=== PATIENT | female | born 1985 | race Caucasian/White ===

== ENCOUNTER → 2022-05-09 13:14 | Outpatient (BNVA) | payer MEDICARE, SELFPAY | PROVIDERS: Family Provider Family Medicine; Visit Provider Family Medicine | DX: J02.0 Streptococcal pharyngitis (principal); B37.0 Candidal stomatitis | CPT/HCPCS: 87880 ==

== ENCOUNTER 2024-06-10 08:54 | Inpatient (IN) | payer MEDICARE, SELFPAY ==
[2024-06-10] VITALS (45 sets, daily range): BP systolic 83–127; BP diastolic 49–89; PULSE 84–142; RESP 15–34; TEMP 36.6–36.8; O2SAT 93–98; BMI 49.2
--- NOTE | 2024-06-10 08:56 | XRR_ITS ---
PROCEDURE INFORMATION: Exam: XR Chest Exam date and time: 06/10/2024 9:12 AM Age: 38 years old Clinical indication: Angina pectoris; Chest pain/sob TECHNIQUE: Imaging protocol: Radiologic exam of the chest. Views: 1 view. COMPARISON: No relevant prior studies available. FINDINGS: Lungs: Unremarkable. No consolidation. Pleural spaces: Unremarkable. No pleural effusion. No pneumothorax. Heart/Mediastinum: Unremarkable. No cardiomegaly. Bones/joints: Unremarkable. XR/XR chest 1V portable [id number] IMPRESSION: No acute cardiopulmonary findings.
--- NOTE | 2024-06-10 09:00 | ED_ITS ---
Documented by User: MINDY Cameron 06/10/24 12:46 HPI - Chest Pain 2 General: Chief Complaint: Chest Pain Stated Complaint: chest pain Time Seen by Provider: 06/10/24 08:56 Source: patient Mode of arrival: wheelchair Limitations: no limitations History of Present Illness: Patient is a 38-year-old female with a history of obesity, every day smoker, and physical deconditioning here for complaints of chest pain over the past few days. Patient was wheeled to her room in a wheelchair. Just the transferring from her wheelchair to her bed is producing profound dyspnea. She is essentially panting when I enter the room for initial examination. Patient tells me she rarely leaves her house and it is normal for her to get such shortness of breath with minimal activity. She smokes a pack of cigarettes a day. Patient states over the past few days she has been having chest pressure and tingling in her arms. She does state the other day it got worse after eating. She has no known medical conditions but admittedly does not leave her house to go to the doctor. Does state a few days ago she had a fever of 101.0. MD complaint: chest pain Onset (ago): day(s) Timing of current episode: episodic Onset: during rest Pain location: substernal Pain radiation: none Severity: moderate Quality: heaviness and other (pressure) Relieving factors: nothing Exacerbating factors: eating Associated symptoms: Reports no associated symptoms, dyspnea and fever(s) (a few days ago-none since); Deny abdominal pain, nausea, palpitations, syncope or vomiting Treatment prior to arrival: none Risk Factors: Coronary artery disease risk factors: smoking history Thoracic aortic dissection risk factors: none Related Data Home Medications Medication Instructions Recorded Confirmed No Known Home Medications 06/10/24 06/10/24 Allergies Allergy/AdvReac Type Severity Reaction Status Date / Time No Known Allergies Allergy Verified 08/05/22 12:05 Review of Systems 2 Const: Reports: fever(s) (a few days ago-none since); Denies: body aches, change in appetite or change in weight Eyes: Denies: change in vision, blurry vision, eye discharge, floaters or seeing flashes ENMT: Denies: throat pain, odynophagia, ear or mastoid pain, nasal discharge, nasal congestion or sinus pain Card: Reports: chest pain and dyspnea on exertion; Denies: palpitations, irregular heart rhythm, edema, syncope or pre-syncope Resp: Reports: dyspnea; Denies: wheezing, stridor, pain on inspiration or hemoptysis GI: Denies: abdominal pain, nausea, vomiting or diarrhea : Denies: flank pain or dysuria Musc: Denies: neck pain, back pain, extremity pain, extremity swelling, joint pain or joint swelling Skin/Breast: Denies: rash Neuro: Denies: headache(s), numbness in extremities, weakness in extremities, sensory changes or dizziness PFSH ED 2 PFSH: Social History (Updated 06/10/24 @ 12:37 by Lazaro Thompson MD) Smoking and tobacco/nicotine status: current every day tobacco/nicotine user Physical Exam 2 Const: COMMON NORMALS: no acute distress, patient oriented x3, no limitations, alert and well nourished GENERAL APPEARANCE: cooperative NUTRITIONAL APPEARANCE: obese morbidly obese ORIENTATION/CONSCIOUSNESS: Yes awake, Yes oriented to person, Yes oriented to place and Yes oriented to time HENMT: COMMON NORMALS: normocephalic and atraumatic HEAD & SCALP: normal to inspection, normocephalic and atraumatic Eye: COMMON NORMALS: no scleral icterus Neck/C-Spine: COMMON NORMALS: full ROM, no lymphadenopathy, supple and no meningeal signs Chest: COMMONS NORMALS: normal inspection of the chest Resp: COMMON NORMALS: normal respiratory effort and clear to auscultation bilaterally AUSCULTATION: clear to auscultation bilaterally Cardio: COMMON NORMALS: regular rhythm RATE: tachycardic RHYTHM: regular rhythm GI: COMMON NORMALS: Normal to inspection, nondistended, normoactive bowel sounds present, Soft to palpation, non-tender, No hepatosplenomegaly present and no masses PALPATION: Yes Soft to palpation and Yes No hepatosplenomegaly present : COMMON NORMALS: Yes no CVA tenderness BLADDER/KIDNEY EXAM: Yes no CVA tenderness Back/Pelvis: COMMON NORMALS: no CVA tenderness and thoracic and lumbar spine normal to inspection Extremity: COMMON NORMALS: normal to inspection, capillary refill normal, no clubbing, cyanosis or edema, no calf tenderness and no pedal edema NARRATIVE EXTREMITY EXAM: clubbed fingers GENERAL: Yes normal exam except as noted Neuro: LAYNE COMA SCALE: document GCS findings Layne coma scale eye opening: Spontaneous [place] coma scale verbal response: Orientated [place] coma scale motor response: Obey commands [place] coma scale total score: 15 COMMON NORMALS: patient oriented x3, CN's II-XII intact bilaterally, moves all extremities, no focal motor deficits, no sensory deficits noted and gait normal SENSORIUM/ORIENTATION: Yes alert, Yes oriented to person, Yes oriented to place and Yes oriented to time MENINGEAL SIGNS: Yes no meningeal signs Skin: COMMON NORMALS: no rashes or lesions noted NARRATIVE SKIN EXAM: psoriasis patches to lower extremities GENERAL SKIN EXAM: no rashes or lesions noted Course 2 Consultations: Consultation #1: Dr. Thompson-recommends admission to ICU, would appreciate consult with cardiology Consultation #2: Dr. Pelletier-will consult on patient; recommending 0.5 in nitro paste Vital Signs: Vital signs: Vital Signs Temperature 97.8 F 06/10/24 15:45 Pulse Rate 106 H 06/10/24 17:30 Respiratory Rate 21 H 06/10/24 17:30 Blood Pressure 126/75 06/10/24 17:30 Pulse Oximetry 94 06/10/24 17:30 Oxygen Delivery Me thod Room Air 06/10/24 16:00 MDM - Chest Pain Medical Decision Making Patient is a 38-year-old female here for intermittent episodes of chest pain/back pain over the past few days. Patient has no known medical problems however rarely leaves her house. She is a chronic heavy smoker. Patient was tachycardic upon arrival. CBC showed a white count of 21.4. She was initially started on IV fluids given concern for possible sepsis although source was not obvious. Later labs showed a baseline troponin of 790 and a significantly elevated BNP. IV fluids were eventually stopped due to concern for fluid overload/cardiomyopathy. CXR and UA did not reveal source of infection. CTA was ordered at the recommendation of Dr. Sarah. This was negative for PE. She does have moderate left ventricular enlargement. Patient will be admitted to Dr. Thompson. Dr. Pelletier will follow-he is planning for cath at some point. She has been started on IV heparin, Plavix, aspirin, nitro. Hospitalist requesting CT abdomen/pelvis to rule out possible infection source. Echo has been ordered. Medical Records I reviewed the patient's medical records. Lab Data I reviewed the patient's lab results. 06/10/24 09:23 06/10/24 09:23 Radiology Impressions Chest X-Ray 06/10/24 08:56 IMPRESSION: No acute cardiopulmonary findings. Chest CTA 06/10/24 09:59 IMPRESSION: 1. No pulmonary embolism. 2. Moderate LEFT ventricular enlargement. Progressed since 02/15/2006. 3. Mild pulmonary edema. 4. LEFT adrenal gland mass containing fat measures 5.2 x 5.0 cm and this is most likely an adrenal myelolipoma. 5. 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 Abdomen/Pelvis CT 06/10/24 12:10 IMPRESSION: 1. Status post appendectomy. 2. No renal obstruction. 3. Large LEFT ovarian cyst measures 6.0 x 7.5 x 5.5 cm. 4. LEFT adrenal gland mass contains fat. Most consistent with adrenal myelolipoma. 5. Small RIGHT adrenal gland adenoma. 6. No free fluid or free air. Laboratory Results WBC 21.40 10^3/uL (3.29-11.43) H 06/10/24 09:23 RBC 5.55 10^6/uL (3.85-5.65) 06/10/24 09:23 Hgb 14.80 g/dL (11.27-16.99) 06/10/24 09:23 Hct 45.1 % (36-47) 06/10/24 09:23 MCV 81.3 fl (85-98) L 06/10/24 09:23 MCH 26.7 pg (27-33) L 06/10/24 09:23 MCHC 32.8 g/dL (30-55) 06/10/24 09:23 RDW 15.1 % (12.1-15.1) 06/10/24 09:23 Plt Count 418 10^3/cmm (157-399) H 06/10/24 09:23 MPV 9.2 fL (7.4-10.4) 06/10/24 09:23 Neut % (Auto) 75.4 % 06/10/24 09:23 Lymph % (Auto) 17.8 % 06/10/24 09:23 [place] % (Auto) 5.3 % 06/10/24 09:23 Eos % (Auto) 0.5 % 06/10/24 09:23 Baso % (Auto) 0.4 % 06/10/24 09:23 Neut # (Auto) 16.14 10^3/uL (1.8-7.7) H 06/10/24 09: Lymph # (Auto) 3.8 10^3/uL (0.8-4.8) 06/10/24 09:23 [place] # (Auto) 1.1 10^3/uL (0.2-0.9) H 06/10/24 09: Eos # (Auto) 0.1 10^3/uL (0.0-0.8) 06/10/24 09: Baso # (Auto) 0.1 10^3/uL (0.0-0.1) 06/10/24 09: Nucleated RBC % (auto) 0 % 06/10/24 09: Nucleated RBCs # 0.0 /100WBC 06/10/24 09: D-Dimer 0.41 ug/mLFEU (0-0.59) 06/10/24 09:23 Sodium 132 mmol/L (136-145) L 06/10/24 09: Potassium 4.0 mmol/L (3.5-5.1) 06/10/24 09: Chloride 99 mmol/L (98-107) 06/10/24 09: Carbon Dioxide 15 mmol/L (22-29) L 06/10/24 09: Anion Gap 22.0 (5-19) H 06/10/24 09:23 BUN 7 mg/dL (6-20) 06/10/24 09: Creatinine 0.7 mg/dL (0.5-0.9) 06/10/24 09: GFR Calculation 92.7 mL/min (90-130) 06/10/24 09: Glucose 192 mg/dL (65-115) H 06/10/24 09: Estimat Average Glucose 157 06/10/24 09: Hemoglobin A1c 7.1 % (4.0-6.0) H 06/10/24 09:23 Calculated Osmolality 277 mOsm/kg (285-295) L 06/10/24 09: Lactic Acid 5.2 mmol/L (0.5-2.2) H* 06/10/24 09:23 Lactic Acid (Sepsis) 2.4 mmol/L (0.5-2.2) H 06/10/24 12:27 Calcium 9.0 mg/dL (8.5-10.5) 06/10/24 09:23 Total Bilirubin 0.6 mg/dL (0.15-1.2) 06/10/24 09:23 AST 69 U/L (0-32) H 06/10/24 09:23 ALT 16 U/L (0-33) 06/10/24 09:23 Alkaline Phosphatase 105 U/L (35-105) 06/10/24 09:23 Troponin T Baseline 790 ng/L (0-10) H* 06/10/24 09:23 Troponin T 120 Minute 783.0 ng/L (0-10) H 06/10/24 11:01 Delta Troponin T -7.0 ABS# (0-10) L 06/10/24 11:01 NT-Pro-B Natriuret Pep 9604 pg/mL (0-125) H 06/10/24 09:23 Total Protein 6.9 g/dL (6.6-8.7) 06/10/24 09:23 Albumin 3.8 g/dL (3.5-5.2) 06/10/24 09:23 Globulin 3.1 g/dL (1.3-4.6) 06/10/24 09:23 Triglycerides 197 mg/dL (0-150) H 06/10/24 09:23 Cholesterol 267 mg/dL (0-200) H 06/10/24 09:23 LDL Cholesterol, Calc 199 mg/dL (50-129) H 06/10/24 09:23 Total VLDL Cholesterol 39 mg/dL (0-30) H 06/10/24 09:23 HDL Cholesterol 29 mg/dL (60-100) L 06/10/24 09:23 Cholesterol/HDL Ratio 9.21 mg/dL (0.0-4.40) H 06/10/24 09:23 Procalcitonin 0.05 ng/mL (0-0.5) 06/10/24 09:23 HCG, Qual Negative (Negative) 06/10/24 09:23 Urine Color Yellow (Yellow) 06/10/24 11:10 Urine Appearance Clear (CLEAR) 06/10/24 11:10 Urine pH 5.5 (5-7) 06/10/24 11:10 Ur Specific [place] 1.051 (1.005-1.030) H 06/10/24 11:10 Urine Protein Trace (Negative) A 06/10/24 11:10 Urine Glucose (UA) Negative (Normal) 06/10/24 11:10 Urine Ketones Negative (Negative) 06/10/24 11:10 Urine Blood Non-haemolysed trace (Negative) 06/10/24 11:10 Urine Nitrate Negative (Negative) 06/10/24 11:10 Urine Bilirubin Negative (Negative) 06/10/24 11:10 Urine Urobilinogen 1.0 mg/dL (Negative) 06/10/24 11:10 Ur Leukocyte Esterase Negative (Negative) 06/10/24 11:10 Urine RBC 0-2 /hpf (0-2) 06/10/24 11:10 Urine WBC 0-5 /hpf (0-5) 06/10/24 11:10 Ur Squamous Epith Cells 0-5 /hpf (0-5) 06/10/24 11:10 Amorphous Sediment Not Reportable 06/10/24 11:10 Urine Bacteria Trace /hpf (NONE) 06/10/24 11:10 Hyaline Casts 8.26 /lpf 06/10/24 11:10 Urine Opiates Screen Positive ng/mL (Negative) H 06/10/24 11:10 Ur Barbiturates Screen Negative ng/mL (Negative) 06/10/24 11:10 Ur Phencyclidine Scrn Negative ng/mL (Negative) 06/10/24 11:10 Ur Amphetamines Screen Negative ng/mL (Negative) 06/10/24 11:10 U Benzodiazepines Scrn Negative ng/mL (Negative) 06/10/24 11:10 Urine Cocaine Screen Negative ng/mL (Negative) 06/10/24 11:10 U Marijuana (THC) Screen Negative ng/mL (Negative) 06/10/24 11:10 Coronavirus (PCR) Negative (Negative) 06/10/24 09:45 Influenza A (PCR) Negative (Negative) 06/10/24 09:45 Influenza Type B (PCR) Negative (Negative) 06/10/24 09:45 RSV (PCR) Negative (Negative) 06/10/24 09:45 All radiology interpretation(s) finalized by discharge Discharge Plan Discharge Patient Disposition: Admitted As Inpatient Admit Provider: Lazaro Thompson Clinical Impression: Dyspnea on exertion, Lactic acidosis, NSTEMI (non-ST elevated myocardial infarction) Condition: Stable Coding Level of Care Code ED Charge Operator for Johnathan Fwtana Documented by User: Sang Sarah DO 06/10/24 17:40 HPI - Chest Pain 2 General: Chief Complaint: Chest Pain Stated Complaint: chest pain Time Seen by Provider: 06/10/24 08:56 Related Data Home Medications Medication Instructions Recorded Confirmed No Known Home Medications 06/10/24 06/10/24 Allergies Allergy/AdvReac Type Severity Reaction Status Date / Time No Known Allergies Allergy Verified 08/05/22 12:05 [facility] ED 2 PFSH: Social History (Updated 06/10/24 @ 12:37 by Lazaro Thompson MD) Smoking and tobacco/nicotine status: current every day tobacco/nicotine user Physical Exam 2 Neuro: LAYNE COMA SCALE: document GCS findings [place] coma scale total score: 15 Course 2 Vital Signs: Vital signs: Vital Signs Temperature 97.8 F 06/10/24 15:45 Pulse Rate 106 H 06/10/24 17:30 Respiratory Rate 21 H 06/10/24 17:30 Blood Pressure 126/75 06/10/24 17:30 Pulse Oximetry 94 06/10/24 17:30 Oxygen Delivery Me thod Room Air 06/10/24 16:00 MDM - Chest Pain Medical Decision Making Patient is a 38-year-old female here for intermittent episodes of chest pain/back pain over the past few days. Patient has no known medical problems however rarely leaves her house. She is a chronic heavy smoker. Patient was tachycardic upon arrival. CBC showed a white count of 21.4. She was initially started on IV fluids given concern for possible sepsis although source was not obvious. Later labs showed a baseline troponin of 790 and a significantly elevated BNP. IV fluids were eventually stopped due to concern for fluid overload/cardiomyopathy. CXR and UA did not reveal source of infection. CTA was ordered at the recommendation of Dr. Sarah. This was negative for PE. She does have moderate left ventricular enlargement. Patient will be admitted to Dr. Thompson. Dr. Pelletier will follow-he is planning for cath at some point. She has been started on IV heparin, Plavix, aspirin, nitro. Hospitalist requesting CT abdomen/pelvis to rule out possible infection source. Echo has been ordered. Chart reviewed and patient discussed with midlevel. Agree with assessment and plan. Lab Data 06/10/24 09:23 06/10/24 09:23 Radiology Impressions Chest X-Ray 06/10/24 08:56 IMPRESSION: No acute cardiopulmonary findings. Chest CTA 06/10/24 09:59 IMPRESSION: 1. No pulmonary embolism. 2. Moderate LEFT ventricular enlargement. Progressed since 02/15/2006. 3. Mild pulmonary edema. 4. LEFT adrenal gland mass containing fat measures 5.2 x 5.0 cm and this is most likely an adrenal myelolipoma. 5. 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 Abdomen/Pelvis CT 06/10/24 12:10 IMPRESSION: 1. Status post appendectomy. 2. No renal obstruction. 3. Large LEFT ovarian cyst measures 6.0 x 7.5 x 5.5 cm. 4. LEFT adrenal gland mass contains fat. Most consistent with adrenal myelolipoma. 5. Small RIGHT adrenal gland adenoma. 6. No free fluid or free air. Laboratory Results WBC 21.40 10^3/uL (3.29-11.43) H 06/10/24 09:23 RBC 5.55 10^6/uL (3.85-5.65) 06/10/24 09:23 Hgb 14.80 g/dL (11.27-16.99) 06/10/24 09:23 Hct 45.1 % (36-47) 06/10/24 09:23 MCV 81.3 fl (85-98) L 06/10/24 09:23 MCH 26.7 pg (27-33) L 06/10/24 09:23 MCHC 32.8 g/dL (30-55) 06/10/24 09:23 RDW 15.1 % (12.1-15.1) 06/10/24 09:23 Plt Count 418 10^3/cmm (157-399) H 06/10/24 09:23 MPV 9.2 fL (7.4-10.4) 06/10/24 09:23 Neut % (Auto) 75.4 % 06/10/24 09:23 Lymph % (Auto) 17.8 % 06/10/24 09:23 [place] % (Auto) 5.3 % 06/10/24 09:23 Eos % (Auto) 0.5 % 06/10/24 09:23 Baso % (Auto) 0.4 % 06/10/24 09:23 Neut # (Auto) 16.14 10^3/uL (1.8-7.7) H 06/10/24 09:23 Lymph # (Auto) 3.8 10^3/uL (0.8-4.8) 06/10/24 09:23 [place] # (Auto) 1.1 10^3/uL (0.2-0.9) H 06/10/24 09:23 Eos # (Auto) 0.1 10^3/uL (0.0-0.8) 06/10/24 09:23 Baso # (Auto) 0.1 10^3/uL (0.0-0.1) 06/10/24 09: Nucleated RBC % (auto) 0 % 06/10/24 09: Nucleated RBCs # 0.0 /100WBC 06/10/24 09:23 D-Dimer 0.41 ug/mLFEU (0-0.59) 06/10/24 09:23 Sodium 132 mmol/L (136-145) L 06/10/24 09:23 Potassium 4.0 mmol/L (3.5-5.1) 06/10/24 09:23 Chloride 99 mmol/L (98-107) 06/10/24 09:23 Carbon Dioxide 15 mmol/L (22-29) L 06/10/24 09:23 Anion Gap 22.0 (5-19) H 06/10/24 09:23 BUN 7 mg/dL (6-20) 06/10/24 09:23 Creatinine 0.7 mg/dL (0.5-0.9) 06/10/24 09:23 GFR Calculation 92.7 mL/min (90-130) 06/10/24 09:23 Glucose 192 mg/dL (65-115) H 06/10/24 09:23 Estimat Average Glucose 157 06/10/24 09:23 Hemoglobin A1c 7.1 % (4.0-6.0) H 06/10/24 09:23 Calculated Osmolality 277 mOsm/kg (285-295) L 06/10/24 09:23 Lactic Acid 5.2 mmol/L (0.5-2.2) H* 06/10/24 09:23 Lactic Acid (Sepsis) 2.4 mmol/L (0.5-2.2) H 06/10/24 12:27 Calcium 9.0 mg/dL (8.5-10.5) 06/10/24 09:23 Total Bilirubin 0.6 mg/dL (0.15-1.2) 06/10/24 09:23 AST 69 U/L (0-32) H 06/10/24 09:23 ALT 16 U/L (0-33) 06/10/24 09:23 Alkaline Phosphatase 105 U/L (35-105) 06/10/24 09:23 Troponin T Baseline 790 ng/L (0-10) H* 06/10/24 09:23 Troponin T 120 Minute 783.0 ng/L (0-10) H 06/10/24 11:01 Delta Troponin T -7.0 ABS# (0-10) L 06/10/24 11:01 NT-Pro-B Natriuret Pep 9604 pg/mL (0-125) H 06/10/24 09:23 Total Protein 6.9 g/dL (6.6-8.7) 06/10/24 09:23 Albumin 3.8 g/dL (3.5-5.2) 06/10/24 09:23 Globulin 3.1 g/dL (1.3-4.6) 06/10/24 09:23 Triglycerides 197 mg/dL (0-150) H 06/10/24 09:23 Cholesterol 267 mg/dL (0-200) H 06/10/24 09:23 LDL Cholesterol, Calc 199 mg/dL (50-129) H 06/10/24 09:23 Total VLDL Cholesterol 39 mg/dL (0-30) H 06/10/24 09:23 HDL Cholesterol 29 mg/dL (60-100) L 06/10/24 09:23 Cholesterol/HDL Ratio 9.21 mg/dL (0.0-4.40) H 06/10/24 09:23 Procalcitonin 0.05 ng/mL (0-0.5) 06/10/24 09:23 HCG, Qual Negative (Negative) 06/10/24 09:23 Urine Color Yellow (Yellow) 06/10/24 11:10 Urine Appearance Clear (CLEAR) 06/10/24 11:10 Urine pH 5.5 (5-7) 06/10/24 11:10 Ur Specific [place] 1.051 (1.005-1.030) H 06/10/24 11:10 Urine Protein Trace (Negative) A 06/10/24 11:10 Urine Glucose (UA) Negative (Normal) 06/10/24 11:10 Urine Ketones Negative (Negative) 06/10/24 11:10 Urine Blood Non-haemolysed trace (Negative) 06/10/24 11:10 Urine Nitrate Negative (Negative) 06/10/24 11:10 Urine Bilirubin Negative (Negative) 06/10/24 11:10 Urine Urobilinogen 1.0 mg/dL (Negative) 06/10/24 11:10 Ur Leukocyte Esterase Negative (Negative) 06/10/24 11:10 Urine RBC 0-2 /hpf (0-2) 06/10/24 11:10 Urine WBC 0-5 /hpf (0-5) 06/10/24 11:10 Ur Squamous Epith Cells 0-5 /hpf (0-5) 06/10/24 11:10 Amorphous Sediment Not Reportable 06/10/24 11:10 Urine Bacteria Trace /hpf (NONE) 06/10/24 11:10 Hyaline Casts 8.26 /lpf 06/10/24 11:10 Urine Opiates Screen Positive ng/mL (Negative) H 06/10/24 11:10 Ur Barbiturates Screen Negative ng/mL (Negative) 06/10/24 11:10 Ur Phencyclidine Scrn Negative ng/mL (Negative) 06/10/24 11:10 Ur Amphetamines Screen Negative ng/mL (Negative) 06/10/24 11:10 U Benzodiazepines Scrn Negative ng/mL (Negative) 06/10/24 11:10 Urine Cocaine Screen Negative ng/mL (Negative) 06/10/24 11:10 U Marijuana (THC) Screen Negative ng/mL (Negative) 06/10/24 11:10 Coronavirus (PCR) Negative (Negative) 06/10/24 09:45 Influenza A (PCR) Negative (Negative) 06/10/24 09:45 Influenza Type B (PCR) Negative (Negative) 06/10/24 09:45 RSV (PCR) Negative (Negative) 06/10/24 09:45 Discharge Plan Discharge Patient Disposition: Admitted As Inpatient Admit Provider: Lazaro Thompson Clinical Impression: Dyspnea on exertion, Lactic acidosis, NSTEMI (non-ST elevated myocardial infarction) Condition: Stable Coding Level of Care Code ED Charge Operator for Johnathan Greco
--- NOTE | 2024-06-10 09:07 | ECG_ITS ---
[facility]9 [facility] [place] [facility] Date: 2024-06-10 Pat Name: Eva Guzmán Department: Room: Gender: Female Coil Former: : 1985 Requested By: Lorena Gonzalez Order Number: [id number] Tory MD: Gil Anderson M.D. Measurements Intervals [place] Rate: 131 P: 84 KS: 151 QRS: 95 QRSD: 91 T: 89 QT: 386 QTc: 570 Interpretive Statements SINUS TACHYCARDIA WITH OCCASIONAL VENTRICULAR PREMATURE COMPLEXES BORDERLINE RIGHT AXIS DEVIATION [QRS AXIS > 90] LOW QRS VOLTAGE [QRS DEFLECTION < 0.5/1.0 mV IN LIMB/CHEST LEADS] POSSIBLE ANTERIOR MYOCARDIAL INFARCTION , OF INDETERMINATE AGE [30 ms Q WAVE IN V3/V4, OR R < 0.2 mV IN V4] No previous ECG available for comparison Electronically Signed On 06-13-2024 22:09:35 ORCHESTRA DIRECTOR by Gil Anderson M.D. [email or web address]
[2024-06-10 09:28] LABS: Basophils # 0.1 10^3/uL (0.0-0.1); Basophils % 0.4 %; Eosinophils # 0.1 10^3/uL (0.0-0.8); Eosinophils % 0.5 %; Hematocrit 45.1 % (36-47); Lymphocytes # 3.8 10^3/uL (0.8-4.8); Lymphocytes % 17.8 %; Mean Corpuscular HGB Conc 32.8 g/dL (30-55); Mean Corpuscular Hemoglobin 26.7 pg (27-33); Mean Corpuscular Volume 81.3 fl (85-98); Mean Platelet Volume 9.2 fL (7.4-10.4); Monocytes # 1.1 10^3/uL (0.2-0.9); Monocytes % 5.3 %; Neutrophils # 16.14 10^3/uL (1.8-7.7); Neutrophils % 75.4 %; Nucleated Red Blood Cells % 0 %; Platelet Count 418 10^3/cmm (157-399); Red Blood Count 5.55 10^6/uL (3.85-5.65); Red Cell Distribution Width 15.1 % (12.1-15.1)
[2024-06-10 09:48] LABS: D Dimer 0.41 ug/mLFEU (0-0.59); HCG, Serum Qual Negative (Negative)
[2024-06-10 09:52] LABS: Troponin(5th) Baseline 790 ng/L (0-10)
[2024-06-10 09:55] LABS: Alanine Aminotransferase 16 U/L (0-33); Albumin Level 3.8 g/dL (3.5-5.2); Alkaline Phosphatase 105 U/L (35-105); Aspartate Amino Transferase 69 U/L (0-32); Blood Urea Nitrogen 7 mg/dL (6-20); Carbon Dioxide 15 mmol/L (22-29); Chloride 99 mmol/L (98-107); Creatinine Clr Calc Pharmacy 138.0906; Globulin 3.1 g/dL (1.3-4.6); Glomerular Filtration Rate 92.7 mL/min (90-130); Glucose 192 mg/dL (65-115); Osmolality Calculated 277 mOsm/kg (285-295); Sodium 132 mmol/L (136-145); Total Bilirubin 0.6 mg/dL (0.15-1.2); Total Protein 6.9 g/dL (6.6-8.7)
[2024-06-10 09:57] LABS: Lactic Sepsis W/Reflex 5.2 mmol/L (0.5-2.2)
--- NOTE | 2024-06-10 09:59 | CT_ITS ---
WS: [id number] CT CHEST ANGIOGRAPHY WITH REFORMATS HISTORY: SOB, tachycardia, elevated trop TECHNIQUE: Contiguous axial images are obtained through the chest during arterial injection of intrav enous contrast. Images are reconstructed to evaluate the pulmonary arteries. MIP imaging also reviewe d. All CT scans at [facility] use at least one of these dose optimization techniques: automat ed exposure control; mA and/or kV adjustment per patient size (includes targeted exams where dose is matched to clinical indication); or iterative reconstruction. CONTRAST: Omnipaque 350; 100 mL IV. DLP: 566.80 mGy.cm COMPARISON: None available. Adequate opacification of the pulmonary arteries. No proximal emboli or filling defect. No filling de fect in the lobar or segmental branches. No RIGHT heart strain. There is significant enlargement of t he LEFT ventricle. Mild interstitial edema. Subpleural micronodule RIGHT upper lobe. No mediastinal adenopathy. Normal s ize pulmonary artery. Small hiatal hernia. There is a large fat-containing mass associated with the LEFT adrenal gland. There are fat components and solid components. The adrenal gland measures 5.2 x 5.0 cm. New since the study from 2005. There is an additional smaller RIGHT adrenal gland mass measuring 1.6 x 1.2 cm consistent with an adenoma. Liver is enlarged. CT/CT angio chest PE protcl [id number] IMPRESSION: 1. No pulmonary embolism. 2. Moderate LEFT ventricular enlargement. Progressed since 02/15/2006. 3. Mild pulmonary edema. 4. LEFT adrenal gland mass containing fat measures 5.2 x 5.0 cm and this is mo st likely an adrenal myelolipoma. 5. 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
[2024-06-10 10:03] LABS: Procalcitonin 0.05 ng/mL (0-0.5)
[2024-06-10] MEDS: iohexol 350 mg/mL 500 mL Btl (per mL) IV (10:19)
[2024-06-10] MEDS: aspirin 81 mg Chew Tablet 324 MG PO (10:26)
[2024-06-10] MEDS: heparin 5,000 unit/mL INJ 1 mL IVP ×2 (10:27→18:47)
[2024-06-10] MEDS: clopidogrel 300 mg Tablet PO (10:27)
[2024-06-10] MEDS: heparin drip 25,000 UNIT/500 ML PREMIX 35 UNIT IV (10:27)
[2024-06-10 10:36] LABS: NT Pro B Type Natriuretic Pept 9604 pg/mL (0-125)
[2024-06-10 10:53] LABS: Influenza A NEGATIVE (Negative); Influenza B NEGATIVE (Negative); Respiratory Syncytial Virus Ce NEGATIVE (Negative); SARS-CoV-2 PCR NEGATIVE (Negative)
--- NOTE | 2024-06-10 11:08 | USCV_ITS ---
Eva Guzmán Age: 38 Gender: F : 1985 Exam Date: 06/10/2024 14:15 Ordering Phys: Lorena Gonzalez Technologist: Exam Location: [facility] Indication: CHF BP: 83 / 54 HR: 99 Rhythm: Sinus Technical Quality: Adequate MEASUREMENTS (Male / Female) Normal Values 2D ECHO LV Diastolic Diameter PLAX 5.4 cm 4.2 - 5.9 / 3.9 - 5.3 cm IVS Diastolic Thickness 1.3 cm 0.6 - 1.0 / 0.6 - 0.9 cm IVS Systolic Thickness 1.6 cm LVPW Diastolic Thickness 1.3 cm 0.6 - 1.0 / 0.6 - 0.9 cm LVPW Systolic Thickness 1.4 cm LVOT Diameter 2.1 cm LV Ejection Fraction 2D Teich 31.6 % LV Ejection Fraction MOD 4C 33.8 % LV Ejection Fraction MOD 2C 36.7 % LV Ejection Fraction 2C AL 36.6 % LA Diameter 4.1 cm RA Systolic Volume 4C AL 36.3 ml RA Systolic Volume 4C MOD 35.7 ml LA Sys Volume AL 41.1 cm cubed LA Sys Volume Index AL 15.9 cm cubed/m squared Aorta at Sinotubular Diameter 2.7 cm IVC Diameter 1.3 cm M-MODE LA Ao Ratio MM 1.2 AV Cusp Separation MM 2.3 cm DOPPLER AV Peak Velocity 110.0 cm/s LVOT Peak Velocity 83.0 cm/s AV Area Cont Eq vti 3.4 cm squared AV Area Cont Eq pk 2.7 cm squared MV Peak Velocity 132.0 cm/s MV Area PHT 8.0 cm squared Mitral E to A Ratio 17.2 TV Peak Velocity 153.5 cm/s TR Peak Velocity 164.0 cm/s TR Peak Gradient 10.8 mmHg TV Peak E Velocity 101.0 cm/s PV Peak Velocity 120.0 cm/s FINDINGS Left Ventricle Moderately increased left ventricular cavity size. Severely decreased left ventricular systolic function. Left ventricular ejection fraction is estimated at 35% . There appeared to be anterior, mid to distal septal and apical.Grade II/IV diastolic dysfunction, moderately elevated filling pressures. Right Ventricle The right ventricle is normal in size and function. Right Atrium The right atrium is normal in size. Left Atrium The left atrium is normal in size. Mitral Valve Moderately thickened mitral valve. No mitral valve stenosis. Mild mitral valve regurgitation. Aortic Valve Moderate aortic valve calcification. No aortic valve stenosis. Trace aortic valve regurgitation. Tricuspid Valve Structurally normal tricuspid valve without significant stenosis or regurgitation. Pulmonary artery systolic pressure is normal. Pulmonic Valve Structurally normal pulmonic valve without significant stenosis. There is no pulmonic regurgitation. Pericardium Normal pericardium without effusion. Aorta Normal ascending aorta dimension. IVC The inferior vena cava appears normal. CONCLUSIONS Moderately increased left ventricular cavity size. Severely decreased left ventricular systolic function. Left ventricular ejection fraction is estimated at 35% . There appeared to be anterior, mid to distal septal and apical.Grade II/IV diastolic dysfunction, moderately elevated filling pressures. No significant valve abnormalities. There is no pericardial effusion. Right atrial pressure is around 15 mm of mercury. Stephon Larios MD (Electronically Signed) Final Date: 11 June 2024 20:55 S
--- NOTE | 2024-06-10 11:15 | ECG_ITS ---
[employer] Test Date: 2024-06-10 Pat Name: Eva Guzmán Department: Room: Gender: Female Rehabilitation Therapy Aide: : 1985 Requested By: Lorena Gonzalez Order Number: [id number] Spears MD: Gil Anderson M.D. Measurements Intervals [place] Rate: 118 P: 82 [place]: 165 QRS: 97 QRSD: 93 T: 81 QT: 432 QTc: 607 Interpretive Statements SINUS TACHYCARDIA POSSIBLE LEFT ATRIAL ENLARGEMENT [-0.1mV P-WAVE IN V1/V2] BORDERLINE RIGHT AXIS DEVIATION [QRS AXIS > 90] LOW QRS VOLTAGE [QRS DEFLECTION < 0.5/1.0 mV IN LIMB/CHEST LEADS] POSSIBLE ANTERIOR MYOCARDIAL INFARCTION , OF INDETERMINATE AGE [30 ms Q WAVE IN V3/V4, OR R < 0.2 mV IN V4] MODERATE T-WAVE ABNORMALITY, CONSIDER LATERAL ISCHEMIA [-0.1+ mV T-WAVE IN I/aVL/V5/V6] Compared to ECG 06/10/2024 09:07:31 T-wave abnormality now present Ventricular premature complex(es) no longer present Myocardial infarct finding still present Electronically Signed On 06-13-2024 22:24:10 [employer] by Gil Anderson M.D. [id number] [id number]
[2024-06-10 11:22] LABS: Reflex Lactate Order REFLEX LACTIC ORDERD
[2024-06-10 11:23] LABS: Bilirubin Urine Negative (Negative); Blood Urine Non-haemolysed trace (Negative); Glucose Urine UA Negative (Normal); Ketones Urine Negative (Negative); Leukocyte Esterase Urine Negative (Negative); Nitrate Urine Negative (Negative); Protein Urine Trace (Negative); Urine Appearance Clear (CLEAR); Urine Color Yellow (Yellow); pH Urine 5.5 (5-7)
[2024-06-10 11:26] LABS: Add Urine Microscopic? YES; Bacteria Urine Trace /hpf; Hyaline Casts Urine 8.26 /lpf; RBC Urine 0-2 /hpf (0-2); Squamous Epithelial Cell Urine 0-5 /hpf (0-5); WBC Urine 0-5 /hpf (0-5)
[2024-06-10 11:52] LABS: Amphetamines Screen Urine Negative (Negative); Barbiturates Screen Urine Negative (Negative); Benzodiazepines Screen Urine Negative (Negative); Cocaine Screen Urine Negative (Negative); Opiate Screen Urine Positive (Negative); PCP Screen Urine Negative (Negative); THC Screen Urine Negative (Negative)
[2024-06-10 11:58] LABS: Add Urine Culture? No; Specific Gravity, Urine 1.051 (1.005-1.030); UA Slide Review UA Slide Review Perf
--- NOTE | 2024-06-10 12:05 | P.HP_ITS ---
Providers/Chief Complaint 2 Chief Complaint: chest pain History of Present Illness Eva Guzmán is a 38 year old female Review of Systems 2 Const: Reports: malaise; Denies: fever(s), chills or body aches ENMT: Denies: throat pain or ear or mastoid pain Card: Denies: chest pain, edema, pre-syncope or dyspnea on exertion Resp: Denies: dyspnea, productive cough, change in phlegm color or hemoptysis GI: Denies: abdominal pain, nausea, vomiting, diarrhea, constipation, hematochezia or melena : Denies: flank pain, urinary frequency or hematuria Musc: Denies: back pain, joint swelling or joint redness Skin/Breast: Denies: rash or new lesions Neuro: Denies: headache(s) or confusion John/Lymph: Denies: easy bleeding Medications/Allergies Home Medications Medication Instructions Recorded Confirmed Last Taken Type No Known Home Medications 06/10/24 06/10/24 Unknown History Allergies Allergy/AdvReac Type Severity Reaction Status Date / Time No Known Allergies Allergy Verified 08/05/22 12:05 PFSH Acute 2 PFSH: Social History (Updated 06/10/24 @ 12:37 by Lazaro Thompson MD) Smoking and tobacco/nicotine status: current every day tobacco/nicotine user Vitals/I&O/Wt Last Vital Signs Temp 98.3 F 06/10/24 09:16 Pulse 121 H 06/10/24 11:16 Resp 20 H 06/10/24 09:16 BP 115/76 06/10/24 11:16 Pulse Ox 97 06/10/24 11:16 O2 Del Method Room Air 06/10/24 11:16 06/09/24 06/10/24 06/10/24 22:59 06:59 14:59 Intake Total 1072 / 1072 Balance 1072 / 1072 Weight last 48 hrs Weight 126.099 kg Physical Exam 2 Sepsis: Is patient septic: Yes Focused sepsis exam performed: Yes F ocused sepsis exam: She is awake and alert, conversant, cooperative. Without mottling or cyanosis. Date exam was performed: 06/10/24 Time exam was performed: 11:00 Data 06/10/24 09:23 06/10/24 09:23 Micro: Microbiology 06/10/24 11:01 Blood Culture - Preliminary Blood SPECIMEN COLLECTED 06/10/24 09:57 Blood Culture - Preliminary Blood SPECIMEN COLLECTED A&P Assessment and plan (1) Sepsis: Unclear source of severe sepsis with tissue hypoperfusion, lactic acid up to 5.2. With sinus tachycardia 113. With leukocytosis 21.4. Source unclear. Reviewed vitals, CBC, D-dimer, CMP, lactic acid, troponin, NT proBNP, procalcitonin, beta-hCG, UA, UDS, coronavirus, close, RSV PCR, chest x- ray, CTA chest, CT abdomen pelvis is requested. Reviewed ER provider note, discussed with ER provider. Sepsis with leukocytosis 21.4, sinus tachycardia 113. With severe sepsis with tissue hypoperfusion, 75.2. She has not had any respiratory symptoms, no suggestion of pneumonia on chest x-ray. No GI symptoms. No neurological symptoms. Does have psoriasis. Does report intermittent carbuncles of breast. Will obtain ultrasound imaging. Reviewed ER provider note, discussed with ER provider. Reviewed CT abdomen pelvis, status post appendectomy. Large left ovarian cyst, 6 x 7.5 x 5.5 cm, but appears not associated with any symptoms. Otherwise without acute process. Additionally possible component of cardiogenic shock with NSTEMI, pending further assessment of cardiac function, possibly new cardiomyopathy. Blood cultures have been collected, she has so far been empirically started on Zosyn. Will continue for now. Monitor for risk of agranulocytosis, Darby- Renny syndrome.C. difficile. Repeat blood counts. Follow-up culture. Has not received fluid resuscitation due to concern for cardiac problems including possible CHF/cardiomyopathy. (2) NSTEMI (non-ST elevated myocardial infarction): With severe elevation of troponin, O2 sat are 90, minimal downtrend to 783. NT proBNP significantly elevated at 9604. Hold off diuresis for now with severe sepsis. Was having chest pain pressure for which she had to take one of her daughters hydrocodone's. Smokes daily. Has psoriasis. Currently without diagnosed medical conditions apart from former, but also does not see a doctor. Continue anticoagulation with heparin drip, monitor for risk of bleeding, monitor PTT, reassess blood counts. Continue aspirin, Plavix, monitor for risk of arrhythmia. Obtain TTE. Cardiology assessment. Consideration of further workup/coronary angiography. Check lipid profile. With hyperglycemia noted on review, check A1c (3) Lactic acidosis: Significantly elevated lactic acid, 5.2, possibly secondary to severe sepsis as above. Treated as above. Additional cardiac workup with TTE. Monitor vitals, provide hemodynamic support as needed. Initial admission to ICU. (4) Dyspnea on exertion: Severe exertional intolerance with minimal exertion even from getting from wheelchair to bed. She is generally not active, with physical deconditioning. Smoking. However, additionally with her elevated NT proBNP 9604 in the setting of normal renal function, elevation of troponin. Additional workup pending as above for NSTEMI and possible cardiomyopathy with CHF. Plan Psoriasis: Has been treating lesions with Vaseline at home by herself. Has not seen ethanol quality leader. Discussed with her would benefit from follow-up. Smoking: Encourage smoking cessation and discussed for 3-1/2 minutes. Discussed already elevated risk of cardiovascular disease with psoriasis, worsened even further with smoking. She and family verbalized understanding. Continue to encourage cessation. Provide nicotine replacement as needed. Obesity: Will benefit from follow-up with primary provider regarding weight loss options. Attestations 2 Medical Necessity Statement*: Admission of over 2 midnights anticipated for assessment management of severe sepsis, NSTEMI in a lady who has not been seeing a doctor. Diagnoses Sepsis A41.9 NSTEMI (non-ST elevated myocardial infarction) I21.4 Lactic acidosis E87.20 Dyspnea on exertion R06.09
--- NOTE | 2024-06-10 12:10 | CT_ITS ---
WS: [id number] CT ABDOMEN AND PELVIS NONCONTRAST HISTORY: sepsis criteria; hospitalist wanted imaging TECHNIQUE: Imaging performed through the abdomen and pelvis. Coronal and sagittal reformats are submi tted. All CT scans at [facility] use at least one of these dose optimization techniques: auto mated exposure control; mA and/or kV adjustment per patient size (includes targeted exams where dose is matched to clinical indication); or iterative reconstruction. DLP: 1156.13 mGy.cm COMPARISON: Prior CT abdomen and pelvis 02/15/2006 Lower thorax: Mild hazy attenuation at the lung bases. Liver: Normal size liver. No mass or bile duct dilatation. Gallbladder: Well-distended gallbladder with stones. There are a few small stones in a small amount o f sludge within the gallbladder. No adjacent pericholecystic edema or fluid. Pancreas: Normal size and attenuation. Normal pancreatic duct. No pancreatitis or mass. Spleen: Normal. Adrenal glands: RIGHT adrenal gland 1.6 x 1.2 cm low-attenuation mass. Larger fat-containing mass ass ociated with the LEFT adrenal gland measures 5.2 x 5.0 cm. Right kidney: Normal size kidney with no mass or hydronephrosis. Left kidney: Exophytic mass from the mid lateral kidney was also present in 2005 without increase in size. Mass measures 10 mm. Aorta: Normal abdominal aorta, no aneurysm or atherosclerosis. No free fluid, intraperitoneal air or significant lymphadenopathy. GI tract: Prior appendectomy. No GI tract obstruction. No colitis or diverticulitis. Abdominal wall: Negative. No hernia. Pelvis: Large LEFT ovarian cyst measures 6.0 x 7.5 x 5.5 cm. Uterus remains midline. There is no free fluid. Osseous structures: Advanced degenerative disc disease at L5-S1 with anterolisthesis of L5 and bilate ral pars defects. CT/CT abdomen pelvis wo con [id number] IMPRESSION: 1. Status post appendectomy. 2. No renal obstruction. 3. Large LEFT ovarian cyst measures 6.0 x 7.5 x 5.5 cm. 4. LEFT adrenal gland mass contains fat. Most consistent with adrenal myelolip patty. 5. Small RIGHT adrenal gland adenoma. 6. No free fluid or free air.
[2024-06-10] MEDS: piperacillin-tazobactam 3.375 GM in sodium chloride 0.9% (plus) 50 ML IV ×2 (12:34→19:49)
[2024-06-10] MEDS: nitroglycerin 1 gm/inch oint Pkt 0.5 INCH TOPICAL (12:34)
--- NOTE | 2024-06-10 12:46 | US_ITS ---
WS: [id number] ULTRASOUND BREAST BILATERAL TECHNIQUE: Ultrasound bilateral breast focused area of concern. CLINICAL INFORMATION: prior carbuncles, assess for any abscess COMPARISON: None. FINDINGS: Bilateral breast ultrasound RIGHT BREAST: No evidence of drainable abscess or fluid collection. No cystic or solid lesions. LEFT BREAST: No evidence of drainable abscess or fluid collection. No cystic or solid lesions. US/US breast BI limited* [id number] IMPRESSION: No drainable abscess or fluid collection in either breast
[2024-06-10 13:04] LABS: Lactic Acid level (Lactate) 2.4 mmol/L (0.5-2.2)
[2024-06-10 13:55] LABS: Estmated Average Glucose 157; Hemoglobin A1C 7.1 % (4.0-6.0)
--- NOTE | 2024-06-10 14:03 | P.CONIM_ITS ---
<Statement entered by Gil Anderson M.D - 06/11/24 00:16> Patient was evaluated and cared for in conjunction with an advanced practice practitioner. I personally examined the patient and reviewed the chart and all pertinent data including imaging, telemetry, and laboratory results. I discussed the patient in detail with the advanced practice practitioner. Please see their note for complete consult note, results and agreed upon plan of care for the patient. Patient is feeling better now and says that has no significant chest pain. Troponins at 2 hours have not trended significantly up. Wbc count is elevated, patient is tachcyardic, has lactic acidosis. GENERAL: Patient is alert and oriented x 3 HEART: Regular S1 and S2 LUNGS: Diminished air entry bilaterally EXTREMITIES: Lower extremities with no edema 1) NSTEMI 2) Lactic acidosis 3) Possible sepsis PLAN: Continue to trend troponins. Aspirin, plavix and heparin. ECHO ordered. Likely cardiac catheterization tomorrow as patient is chest pain free. NPO past midnight Infectious work up and antibiotic therapy per primary team Thank you for involving us with care of this patient. Please call with questions Providers/Reason For Consult 2 Consulting Physician/Specialty*: Dr. Ventura Reason for Consult*: Chest pain, NSTEMI Requesting Physician: MINDY Tao Attending Physician: Lazaro Thompson History of Present Illness History of Present Illness This is a very pleasant 38-year-old female with a history of obesity, everyday smoker, diabetes, and hypertension who came to the ER due to ongoing chest pressure. She states that 2 days ago the chest pressure started at the center of her chest worsening after she ate. She stated that she could not sleep due to the discomfort and because of this came into the emergency room. She also has shortness of breath with exertion. She states she does not follow-up with a doctor regularly. She did states she had a fever of 101 last night. She states she does have a family member that had the stomach bug but overall does not have any known contact with anyone that has been sick. She denies chest pain on our visit. Currently VSS. She has been loaded with plavix and aspirin. She is currently on a heparin drip and was given IV bolus. Initial troponin was 790, with 120 min. trop coming down to 783. Pro bnp elevated at 9604. Chest ct was negative for PE. Lactic acid was elevated at 5.2. EKG showed t-wave inversions in lateral leads. Q waves seen in V2 and V3. No acute ST elevations present. Review of Systems 2 Narrative: Consitutional: denies fever, chills, body aches, or changes in appetite, denies abnormal weight loss Eyes: Denies changes in vision Card: Denies chest pain at this time, palpitations, irregular heart rhythm, edema, syncope, shortness of breath, orthopnea, leg pain with exertion Resp: reports shortness of breath on exertion, denies hemoptysis, denies cough GI: denies abdominal pain, denies nausea or voimting, denies blood in stool : denies blood in urine, denies dysuria Musc: Denies extremity pain, denies limited range of motion or recent injury Skin: Denies rash, lesions, or wounds, denies changes to skin color Neuro: Denies nubmness in extremities, h/a, s/s of stroke John: Denies easy bruiding/bleeding Medications/Allergies Home Medications Medication Instructions Recorded Confirmed Last Taken Type No Known Home Medications 06/10/24 06/10/24 Unknown History Allergies Allergy/AdvReac Type Severity Reaction Status Date / Time No Known Allergies Allergy Verified 08/05/22 12:05 Current Medications Generic Name Dose Route Start Last Admin Trade Name Akhilq PRN Reason Stop Dose Admin Heparin Sodium/Sodium Chloride 25,000 unit in 500 mls @ 0 mls/hr 06/10/24 10:00 06/10/24 10:27 Heparin Drip IV 13.88 unit/kg/hr CONT LYNDON 35 mls/hr Administration Protocol Per Protocol PFSH Acute 2 PFSH: Social History (Updated 06/10/24 @ 12:37 by Lazaro Thompson MD) Smoking and tobacco/nicotine status: current every day tobacco/nicotine user Vitals/I&O/Wt Last Vital Signs Temp 98.3 F 06/10/24 09:16 Pulse 98 06/10/24 13:02 Resp 20 H 06/10/24 09:16 BP 96/59 06/10/24 13:58 Pulse Ox 98 06/10/24 13:02 O2 Del Method Room Air 06/10/24 13:02 06/09/24 06/10/24 06/10/24 22:59 06:59 14:59 Intake Total 1072 / 1072 Balance 1072 / 1072 Weight last 48 hrs Weight 278 lb Physical Exam 2 Narrative: General: No apparent distress, healthy appearing, obese HENMT: normoceophalic Muskuloskeletal: Full ROM Lymphatic: no lymphedema noted Respiratory: Normal respiratory effort, clear to auscultation bilaterally throughout all lung mohr, no use of accessory muscles Cardio: No JVD, regular rate, regular rhythm, S1 S2 normal, no murmurs, peripheral pulses 2+ radial palpated bilaterally GI: Normal to inspection, nondistended Extremities: Full ROM, normal, normal capillary refill, no cyanosis or edema Neuro: Alert and oriented x4, no focal motor deficits Psych: Affect normal, denies suicidal ideation, mental status grossly normal Skin: Appears to have psoriasis on bilateral lower extremities lesions are present without any open wounds Data 06/10/24 09:23 06/10/24 09:23 Micro: Microbiology 06/10/24 11:01 Blood Culture - Preliminary Blood SPECIMEN COLLECTED 06/10/24 09:57 Blood Culture - Preliminary Blood SPECIMEN COLLECTED A&P Assessment and plan (1) NSTEMI (non-ST elevated myocardial infarction): (2) Dyspnea on exertion: (3) Lactic acidosis: (4) Sepsis: Qualifiers: Sepsis acute organ dysfunction status: unspecified Plan At this time patient is stable without chest pain. Troponin is trending down. Initial insult occurred 2 days ago. At this time no need for urgent heart cath. Patient has signs and symptoms of an unknown infection. Agree with heparin drip. Continue aspirin and Plavix. Will continue to monitor tropoinin and EKG. Recommend obtaining echo to evaluate LV function and for any wall motion abnormalities. Patient will need an angiogram in the future. We will possibly do this tomorrow depending on patient's response to therapy as well as pending infection investigation. She has been placed on antibiotics. Will make NPO after midnight just in case. Thank you for allowing us to care for this very pleasant 38 year old female. Coding Level of Care Code Acute Code for [facility] Diagnoses NSTEMI (non-ST elevated myocardial infarction) I21.4 Dyspnea on exertion R06.09 Lactic acidosis E87.20 Sepsis A41.9 Sepsis acute organ dysfunction status: unspecified
[2024-06-10 14:09] LABS: Chol HDL Ratio 9.21 mg/dL (0.0-4.40); Cholesterol 267 mg/dL (0-200); HDL Cholesterol 29 mg/dL (60-100); LDL Cholesterol Calculated 199 mg/dL (50-129); Triglycerides 197 mg/dL (0-150); VLDL Cholestrol Calculation 39 mg/dL (0-30)
--- NOTE | 2024-06-10 16:22 | ECG_ITS ---
[employer] Test Date: 2024-06-10 Pat Name: Eva Guzmán Department: Room: ICU08 Gender: Female Pulp Tester: : 1985 Requested By: Lorena Gonzalez Order Number: [id number] Tory MD: Gil Anderson M.D. Measurements Intervals [place] Rate: 109 P: 81 [place]: 160 QRS: 103 QRSD: 93 T: 51 QT: 319 QTc: 430 Interpretive Statements SINUS TACHYCARDIA POSSIBLE LEFT ATRIAL ENLARGEMENT [-0.1mV P-WAVE IN V1/V2] RIGHT AXIS DEVIATION [QRS AXIS > 100] LOW QRS VOLTAGE [QRS DEFLECTION < 0.5/1.0 mV IN LIMB/CHEST LEADS] POSSIBLE ANTERIOR MYOCARDIAL INFARCTION , OF INDETERMINATE AGE [30 ms Q WAVE IN V3/V4, OR R < 0.2 mV IN V4] Compared to ECG 06/10/2024 11:15:55 T-wave abnormality no longer present Possible ischemia no longer present Myocardial infarct finding still present Electronically Signed On 06-13-2024 22:23:11 [employer] by Gil Anderson M.D. [email or web address] [id number]
[2024-06-10 18:15] LABS: Partial Thromboplastin Time 52.1 SECONDS (23.9-36.7)
[2024-06-10 18:33] LABS: Troponin 5 6HR 2478 ng/L (0-10); Troponin 5 6HR Delta 1688 ng/L (0-12)
[2024-06-10 20:25] LABS: Lactic Sepsis W/Reflex 4.4 mmol/L (0.5-2.2)
--- NOTE | 2024-06-10 20:54 | PM.PN ---
Subjective Subjective: Patient care was transferred to me by Dr. Cordero who is off call, I examined the patient by myself in the ICU. She is laying comfortably denies any chest pain out of usual shortness of breath PND orthopnea. She was talking to the phone. Troponin has bumped more than 2000. Vitals/I&O/Wt Last Vital Signs Temp 97.8 F 06/10/24 15:45 Pulse 106 H 06/10/24 17:30 Resp 21 H 06/10/24 17:30 BP 126/75 06/10/24 17:30 Pulse Ox 94 06/10/24 17:30 O2 Del Method Room Air 06/10/24 16:00 06/10/24 06/10/24 06/10/24 06:59 14:59 22:59 Intake Total 1122 / 1122 591.083 / 1713.083 Balance 1122 / 1122 591.083 / 1713.083 Weight last 48 hrs Weight 276 lb 1.358 oz Weight 278 lb Data 06/10/24 09:23 06/10/24 09:23 Micro: Microbiology 06/10/24 11:01 Blood Culture - Preliminary Blood SPECIMEN COLLECTED 06/10/24 09:57 Blood Culture - Preliminary Blood SPECIMEN COLLECTED A&P Assessment and plan (1) NSTEMI (non-ST elevated myocardial infarction): Plan Non-ST elevation [place] Possible sepsis Tobacco abuse Lactic acidosis Continue aspirin statin heparin, add beta-gail since blood pressure is stable, plan for left heart cath in the morning since patient is chest pain-free and twelve-lead EKG is not suggestive of ongoing ischemia. ContinueAntibiotics as per medicine Continue rest of medications Add beta-gail metoprolol 12.5 once a day Attestations Medical Necessity Statement*: Requires continuation hospitalization for above defined care Coding Level of Care Code Acute Code for [facility] Diagnoses NSTEMI (non-ST elevated myocardial infarction) I21.4
[2024-06-10 21:38] LABS: Reflex Lactate Order REFLEX LACTIC ORDERD
[2024-06-10 22:15] LABS: Lactic Acid level (Lactate) 1.8 mmol/L (0.5-2.2)
[2024-06-11] VITALS (51 sets, daily range): BP systolic 99–147; BP diastolic 63–107; PULSE 79–131; RESP 12–30; TEMP 36.2–37.1; O2SAT 72–99
[2024-06-11] MEDS: heparin drip 25,000 UNIT/500 ML PREMIX 38 UNIT IV (00:24)
[2024-06-11 01:32] LABS: Basophils # 0.1 10^3/uL (0.0-0.1); Basophils % 0.7 %; Eosinophils # 0.1 10^3/uL (0.0-0.8); Hematocrit 38.9 % (36-47); Lymphocytes # 3.5 10^3/uL (0.8-4.8); Mean Corpuscular HGB Conc 33.7 g/dL (30-55); Mean Corpuscular Hemoglobin 26.3 pg (27-33); Mean Corpuscular Volume 78.1 fl (85-98); Mean Platelet Volume 9.1 fL (7.4-10.4); Monocytes # 0.7 10^3/uL (0.2-0.9); Monocytes % 7.5 %; Neutrophils # 5.25 10^3/uL (1.8-7.7); Neutrophils % 54.4 %; Nucleated Red Blood Cells % 0 %; Platelet Count 249 10^3/cmm (157-399); Red Blood Count 4.98 10^6/uL (3.85-5.65); Red Cell Distribution Width 15.3 % (12.1-15.1); White Blood Count 9.66 10^3/uL (3.29-11.43)
[2024-06-11 01:45] LABS: INR 0.93 (0.8-1.2)
[2024-06-11 01:46] LABS: Partial Thromboplastin Time 63.7 SECONDS (23.9-36.7)
[2024-06-11 02:02] LABS: Alanine Aminotransferase 16 U/L (0-33); Albumin Level 3.4 g/dL (3.5-5.2); Alkaline Phosphatase 100 U/L (35-105); Anion Gap 16.7 (5-19); Aspartate Amino Transferase 44 U/L (0-32); Blood Urea Nitrogen 8 mg/dL (6-20); Calcium 8.3 mg/dL (8.5-10.5); Carbon Dioxide 21 mmol/L (22-29); Chloride 102 mmol/L (98-107); Creatinine Clr Calc Pharmacy 160.4218; Globulin 2.7 g/dL (1.3-4.6); Glomerular Filtration Rate 110.7 mL/min (90-130); Glucose 144 mg/dL (65-115); Osmolality Calculated 283 mOsm/kg (285-295); Potassium 3.7 mmol/L (3.5-5.1); Sodium 136 mmol/L (136-145); Total Bilirubin 0.6 mg/dL (0.15-1.2); Total Protein 6.1 g/dL (6.6-8.7)
[2024-06-11] MEDS: piperacillin-tazobactam 3.375 GM in sodium chloride 0.9% (plus) 50 ML IV ×3 (02:32→20:29)
[2024-06-11] MEDS: diphenhydrAMINE 50 mg Capsule PO (07:10)
[2024-06-11] MEDS: clopidogrel 75 mg Tablet PO (08:30)
[2024-06-11] MEDS: pantoprazole DR 40 mg Tablet PO (08:30)
[2024-06-11] MEDS: aspirin 325 mg Tablet PO (08:30)
--- NOTE | 2024-06-11 08:43 | XACV_ITS ---
Exam Room: 2 Ht: 160 cm Wt: 126 kg BSA: 2.45 m2 Gender: Female : 1985 Any Known Allergies: No known allergies Exam Priority: Routine Procedure(s): Procedure Description: Diagnostic procedure Procedure Description: PCI procedure Procedure Description: Left Heart Catheterization Procedure Description: Drug Eluting Coronary Stent Procedure Description: PTCA Procedure Description: Miscellaneous Procedure Description: ACT Procedure [facility] Status: Elective Diagnostic Findings * Left Main has no disease. * Right Coronary Artery has no disease. * Mid Left Anterior Descending: critical 95% stenosis, ADRIAN: 3 flow. * Distal Left Anterior Descending: luminal irregularities 20% stenosis, ADRIAN: 3 flow. * Proximal Circumflex: total occlusion, chronic total occlusion, ADRIAN: 0 flow. * Coronary angiography shows right dominance. PCI Status: Elective Interventional Findings * Mid Left Anterior Descendin% stenosis treated with a AB TREK 2.50X12 RX BALLOON, FRANCISCO J Black BIGG 3.0X15 SHAHEED, and MDNitish FLORES EUPHORA RX 3.94S90ER BALLOON. 0% residual stenosis, ADRIAN: 3 flow. Conclusions 1. There is total occlusion coronary artery disease with two vessel disease. 2. Mid Left Anterior Descending was treated with a Balloon, Drug Eluting Stent, and Balloon. Recommendations * 1-Return to inpatient for close monitoring and routine cath care 2-Risk factor modification for secondary prevention 3-Statin and aspirin 81 mg life-long, if tolerated 4-Patient was pre-loaded with 600 mg of Plavix, continue Plavix 75mg p.o. daily for at least one year. We will assess at the end of one year again to continue if further or not 5-Continue optimal medical management 6-Follow up with Dr. Larios in four weeks and your primary care in 10 days. Interventional RX Recommendation: PCI w/o planned CABG Diagnostic RX Recommendation: PCI w/o planned CABG Pressures Phase:Rest AO : 95 / 77 ( 85 ) @ 10:56:00 AM 110 / 90 ( 102 ) @ 10:57:00 AM 100 / 73 ( 84 ) @ 11:10:00 AM 91 / 62 ( 75 ) @ 11:16:00 AM 88 / 54 ( 68 ) @ 11:20:00 AM 119 / 79 ( 94 ) @ 11:40:00 AM 118 / 78 ( 94 ) @ 11:40:00 AM LV : 126 / 7 / 40 @ 11:39:00 AM 124 / 7 / 36 @ 11:40:00 AM 127 / 7 / 38 @ 11:40:00 AM Valves Phase:DefaultPhase AV : 8.0 @ 11:46:49 AM AV Mean Gradient: 22.0 @ 11:46:49 AM Clinical Evaluation EBL: 5mL-10mL Procedural Details Procedure Consent Obtained. Admit Source: In Patient. Pre-Procedure Time Out. Identified patient by full name and date of as verbalized by the patient/guarantor. Does the consent match the physician's order: Yes. Accurate & Complete Informed Consent: Yes. Inpatient/Outpatient History & Physical on Chart: No. If H&P is completed, is and addenduem needed: No; If yes, is the addendum complete: N/A. Visualize and Verify Site with Patient/Guarantor: N/A. Relevant Radiology Images available: Yes. Pre-op teaching completed and patient verbalized understanding. The risks, benefits, and alternatives of sedation and/or procedure were discussed by physician. The patient agrees to continue. Procedure started. [facility] Clinical Fraility Score: 4: Vulnerable. Senior Radiation Protection Technician Indications: ACS > 24 hours. Chest Pain Symptom Assessment: Typical Angina Symptoms. Correct patient, site and procedure confirmed by cath team. Current diagnosis: Chest Pain. PERRLA. Strong, equal hand assistive technology specialist bilaterally. Lungs clear x 5 lobes. IV Site on Arrival: 20 gauge in the left anticubital. IV Fluids: 0.9% NaCl at KVO. 0 mL infused prior to orthodontic laboratory technician. Oxygen started at 2liters/min via nasal canula. right groin was prepped with chloroprep then draped in the usual sterile fashion. right radial was prepped with chloroprep then draped in the usual sterile fashion. Baseline sample Acquired. HR: 110 BPM. Physician arrived. Physician scrubbed in. Immediate Pre-Procedure Time Out. Correct Patient: Yes; Correct Procedure: Yes; Correct Site: Yes; Correct Patient Position: Yes; Correct Supplies: Yes; Dried Flammable Prep: Yes; Blood Products Available: N/A;. Lidocaine 1% infiltrated to the right radial. Arterial access obtained. A 5 mongolian Kayode catheter in over wire. Multiple views taken of left coronary artery. Catheter redirected to the RCA. Multiple views taken of right coronary artery. Catheter removed over the exchange wire. AP Pads placed on the patient. 6 mongolian XB 3 guide catheter was inserted over the wire. ACT drawn. Results 234 seconds. Therapeutic limits - pre-heparin administration 90-150 seconds and monitoring heparin during a vascular procedure >250 seconds. Runthrough guidewire was advanced through the guide catheter to lesion in the diaganol. A second Runthrough guidewire was advanced through the guide catheter to lesion in the mid LAD. The Diag wire removed. Inflation number : 1 A AB TREK 2.50X12 RX BALLOON was prepped and advanced across the Mid LAD , then inflated to 12 DEE for 0:11 seconds. Inflation number: 2 The AB TREK 2.50X12 RX BALLOON was reinflated across the Mid LAD, to 12 DEE for 0:09 seconds. Balloon out. Stent inserted to lesion in the mid LAD. Inflation Number : 3 A FRANCISCO J Black BIGG 3.0X15 SHAHEED -Lot Number# [id number] EXP 11-20-2026 was prepped and advanced across the Mid LAD. The stent was deployed at 12 DEE for 0:13 seconds. Stent balloon out over wire. Balloon inserted to lesion in the mid LAD. Inflation number : 4 A MDT NC EUPHORA RX 3.24S30MQ BALLOON was prepped and advanced across the Mid LAD , then inflated to 14 DEE for 0:15 seconds. Inflation number: 5 The MDT NC EUPHORA RX [id number] BALLOON was reinflated across the Mid LAD, to 10 DEE for 0:11 seconds. Inflation number: 6 The MDT NC EUPHORA RX 3.29O13WL BALLOON was reinflated across the Mid LAD, to 14 DEE for 0:15 seconds. Balloon out. 2nd runthrough wire in through guide catheter to circumflex. Both runthrough wires out. ACT drawn. Results 238 seconds. Therapeutic limits - pre-heparin administration 90-150 seconds and monitoring heparin during a vascular procedure >250 seconds. Guide catheter out. A 5 mongolian Angled Pig catheter in over wire. EDP Sample taken: LV 126/7,40; HR: 105 BPM; SpO2: 93%. EDP Sample taken: LV 124/7,36; HR: 147 BPM; SpO2: 93%. Pullback taken: LV 127/7,38; AO 119/79(94); Mean: 22mmHg, Peak to Peak: 8mmHg, SEP: 11sec/min; HR: 102 BPM; SpO2: 93%. Catheter removed over the exchange wire. A TR Band was successful obtaining hemostatsis at the Right Radial artery insertion site. Post Procedure: Pulses reassessed and unchanged. PERRLA. Strong, equal hand assistive technology specialist bilaterally. No VTE prophylaxis required. Medication's Wasted: Lidocaine 1% = 18 mL. Medication's Wasted: Nitro = 49.6 mcg. Medication's Wasted: Other = Lasix 50 mg. Total IV fluids: 100 mL. Vital chart was stopped. Post-op diagnosis: Stent to LAD. Complications: None. Estimated blood loss: 5mL-10mL. Responsiveness - Normal response to verbal stimuli; alert and oriented, PERRLA. Airway - Unaffected, no intervention required; spontaneous ventilation. Circulation: W/N/L, pulses unchanged. Nausea/Vomiting: No. Procedure completed. Patient transferred by bed to ICU. Access Site Site: Right Radial artery Sheath Size: 6 Fr Hemostasis Method: TR Band Hemostasis Success: Successful Procedure Medications Start: 10:39 AM Stop: 10:39 AM Medication: Versed Amount: 1 mg Route: I.V. Start: 10:39 AM Stop: 10:39 AM Medication: Fentanyl Amount: 50 mcg Route: I.V. Start: 10:49 AM Stop: 10:49 AM Medication: Versed Amount: 1 mg Route: I.V. Start: 10:49 AM Stop: 10:49 AM Medication: Fentanyl Amount: 50 mcg Route: I.V. Start: 10:52 AM Stop: 10:52 AM Medication: Nitrogylcerin Amount: 200 mcg Route: I.A. Start: 10:54 AM Stop: 10:54 AM Medication: Heparin Amount: 5000 units Route: I.V. Start: 11:00 AM Stop: 11:00 AM Medication: Plavix Amount: 225 mg Route: P.O. Start: 11:07 AM Stop: 11:07 AM Medication: Versed Amount: 1 mg Route: I.V. Start: 11:07 AM Stop: AM Medication: Fentanyl Amount: 50 mcg Route: I.V. Start: 11:06 AM Stop: AM Medication: Nitrogylcerin Amount: 200 mcg Route: I.A. Start: 11:15 AM Stop: AM Medication: Heparin Amount: 4000 units Route: I.V. Start: : AM Stop: AM Medication: Nitrogylcerin Amount: 200 mcg Route: I.C. Start: : AM Stop: AM Medication: Versed Amount: 1 mg Route: I.V. Start: : AM Stop: AM Medication: Fentanyl Amount: 50 mcg Route: I.V. Start: 11: AM Stop: AM Medication: Zofran (ondansetron) Amount: 4 mg Route: I.V. Start: 11:40 AM Stop: :40 AM Medication: Heparin Amount: 3000 units Route: I.V. I, the attending physician, have reviewed and verified all procedure medications. Yes, all medications given per verbal order History/Risk Factors Hypertension: No Dyslipidemia: No Peripheral Arterial Disease (PAD): No Myocardial Infarction (KS): No Obesity: No Renal Disease: No Tobacco Use: Current/Recent(w/in 1 year) Prior Interventions PCI: No CABG: No Valve Surgery: No Report Signatures Finalized by Stephon Larios MD on 06/22/2024 05:06 PM
[2024-06-11 08:55] LABS: Partial Thromboplastin Time 59.1 SECONDS (23.9-36.7)
--- NOTE | 2024-06-11 10:41 | W.PM.OPSUD ---
Surgery/Procedure H&P Update DATE OF PROCEDURE: June 11, 2024 DATE H&P PERFORMED: 06/10/24 H&P UPDATE INFORMATION: I have reviewed H&P completed within last 30 days, I have examined patient prior to procedure, No changes to prior documentation and Changes to prior documentation as noted here PREOP DIAGNOSIS: [id number] PATIENT REASSESSED PRIOR TO SEDATION, WITH NO CHANGE NOTED: Yes PHYSICAL EXAM: alert, oriented x 3, clear to auscultation bilaterally, regular rate & rhythm and operative site marked AIRWAY EVAL/ANESTHESIA PLAN: ASA II, Risks, benefits & alternatives of sedation and/or procedure discussed and Patient agrees to continue as planned
--- NOTE | 2024-06-11 11:09 | P.PN_ITS ---
<Statement entered by Stephon Larios MD - 06/11/24 21:52> Patient was evaluated and cared for in conjunction with an advanced practice practitioner. I personally examined the patient and reviewed the chart and all pertinent data including imaging, telemetry, and laboratory results. I discussed the patient in detail with the advanced practice practitioner. Please see their note for complete H&P testing result and agreed upon plan of care for the patient. Status post PCI to mid LAD, left circumflex small nondominant and chronically occluded thought to be managed medically Left ventricular end-diastolic pressure was elevated 36 mmHg GENERAL: Patient is alert, awake and oriented x3. HEART: Regular S1 and S2. No murmur, rub or gallop. LUNGS: Clear to auscultate bilaterally. CENTRAL NERVOUS SYSTEM: Grossly nonfocal. EXTREMITIES: Lower extremities with out edema bilaterally. Assessment and plan Non-ST elevation VT Severely depressed left ventricle ejection fraction with regional wall motion abnormality estimated ejection fraction 20% Hypertension Hyperlipidemia Tobacco abuse Continue dual antiplatelet therapy Add beta-gail LifeVest will be initiated for ischemic cardiomyopathy with severely depressed left ventricular ejection fraction Add Entresto Will give IV Lasix 40 mg now Subjective 2 Subjective: Patient going for heart cath today. Heart rate is slightly tachy blood pressure well-controlled 132/87. She has no questions about heart cath. No chest pain at this time. Vitals/I&O/Wt Last Vital Signs Temp 98.8 F 06/11/24 09:15 Pulse 107 H 06/11/24 09:05 Resp 21 H 06/11/24 07:15 BP 132/87 06/11/24 02:30 Pulse Ox 97 06/11/24 07:15 O2 Del Method Room Air 06/10/24 16:00 06/10/24 06/11/24 06/11/24 22:59 06:59 14:59 Intake Total 711.083 / 1833.083 335.550 / 2168.633 50 / 50 Output Total 400 / 400 450 / 850 Balance 311.083 / 1433.083 -114.450 / 1318.633 50 / 50 Weight last 48 hrs Weight 274 lb 6.4 oz Weight 276 lb 1.358 oz Weight 278 lb Physical Exam 2 Narrative: General: No apparent distress, healthy appearing, obese HENMT: normoceophalic Muskuloskeletal: Full ROM Lymphatic: no lymphedema noted Respiratory: Normal respiratory effort, clear to auscultation bilaterally throughout all lung mohr, no use of accessory muscles Cardio: No JVD, regular rate, regular rhythm, S1 S2 normal, no murmurs, peripheral pulses 2+ radial palpated bilaterally GI: Normal to inspection, nondistended Extremities: Full ROM, normal, normal capillary refill, no cyanosis or edema Neuro: Alert and oriented x4, no focal motor deficits Psych: Affect normal, denies suicidal ideation, mental status grossly normal Skin: Appears to have psoriasis on bilateral lower extremities lesions are present without any open wounds Data 06/11/24 01:19 06/11/24 01:19 Micro: Microbiology 06/10/24 11:01 Blood Culture - Preliminary Blood NEGATIVE TO DATE 06/10/24 09:57 Blood Culture - Preliminary Blood NEGATIVE TO DATE A&P Assessment and plan (1) NSTEMI (non-ST elevated myocardial infarction): (2) Dyspnea on exertion: (3) Lactic acidosis: (4) Sepsis: Qualifiers: Sepsis acute organ dysfunction status: unspecified Plan Patient is going for heart cath today. Most likely will need to add beta- gail metoprolol succinate 12.5 daily. Will add goal-directed medical therapy as patient's blood pressure allows. PDMP PDMP Reviewed: Not Reviewed Attestations 2 Medical Necessity Statement*: Requires continuation hospitalization for above defined care Coding Level of Care Code Acute Code for [facility] Diagnoses NSTEMI (non-ST elevated myocardial infarction) I21.4 Dyspnea on exertion R06.09 Lactic acidosis E87.20 Sepsis A41.9 Sepsis acute organ dysfunction status: unspecified
--- NOTE | 2024-06-11 11:50 | PM.PROC ---
Procedure Note: Date of procedure: 06/11/24 Pre-procedure diagnosis: [id number] MT Post-procedure diagnosis: same Procedure: Non-ST elevation MT Mid LAD high-grade 90% stenosis. It was treated with single drug-eluting stent postdilated with noncompliant balloon. Left circumflex appeared to be small nondominant and chronically occluded thought to be managed medically Left main and RCA has luminal irregularity without significant stenosis Left ventricle end-diastolic pressure was elevated at 36 mmHg Plan Continue dual antiplatelet therapy patient has already been loaded with Plavix. Continue Plavix 75 mg aspirin 81 mg statin add beta-gail metoprolol succinate 12.5 mg once a day I will diurese patient because of high LVEDP 40 mg of Lasix will be given now. Potassium chloride 20 mg p.o. once. Check BMP in the morning Check CBC in the morning Full note to be dictated Coding Level of Care Code Acute Code for [facility]
[2024-06-11 16:11] LABS: Partial Thromboplastin Time 27.2 SECONDS (23.9-36.7)
--- NOTE | 2024-06-11 17:01 | P.PN_ITS ---
Subjective 2 Subjective: Today she is feeling slightly better. No active chest pain or pressure. Vitals/I&O/Wt Last Vital Signs Temp 98.8 F 06/11/24 09:15 Pulse 112 H 06/11/24 14:15 Resp 23 H 06/11/24 14:15 BP 119/78 06/11/24 14:15 Pulse Ox 94 06/11/24 13:15 O2 Del Method Room Air 06/10/24 16:00 06/11/24 06/11/24 06/11/24 06:59 14:59 22:59 Intake Total 335.550 / 2168.633 540.167 / 540.167 50 / 590.167 Output Total 450 / 850 Balance -114.450 / 1318.633 540.167 / 540.167 50 / 590.167 Weight last 48 hrs Weight 124.466 kg Weight 125.23 kg Weight 126.099 kg Physical Exam 2 Const: COMMON NORMALS: patient oriented x3 and alert GENERAL APPEARANCE: c ooperative ORIENTATION/CONSCIOUSNESS: Yes awake HENMT: COMMON NORMALS: oropharynx normal Neck/C-Spine: COMMON NORMALS: no JVD Resp: COMMON NORMALS: normal respiratory effort and clear to auscultation bilaterally AUSCULTATION: clear to auscultation bilaterally Cardio: COMMON NORMALS: no JVD, regular rhythm, S1 normal heart sound present, S2 normal heart sound present and No murmurs present (Cardio) RHYTHM: regular rhythm HEART SOUNDS: S1 normal heart sound present and S2 normal heart sound present GI: COMMON NORMALS: Normal to inspection, nondistended, normoactive bowel sounds present, Soft to palpation and non-tender PALPATION: Yes Soft to palpation Extremity: COMMON NORMALS: no joint enlargement and no pedal edema Neuro: COMMON NORMALS: patient oriented x3 and moves all extremities S ENSORIUM/ORIENTATION: Yes alert Skin: COMMON NORMALS: no rashes or lesions noted GENERAL SKIN EXAM: no rashes or lesions noted Data 06/11/24 01:19 06/11/24 01:19 Micro: Microbiology 06/10/24 11:01 Blood Culture - Preliminary Blood NEGATIVE TO DATE 06/10/24 09:57 Blood Culture - Preliminary Blood NEGATIVE TO DATE A&P Assessment and plan (1) NSTEMI (non-ST elevated myocardial infarction): With continued troponin rise to severe level. Underwent assessment by coronary angiography today, with finding of 90% LAD stenosis status post stenting. Continue post angiogram care. Continue DAPT. Beta-gail, statin. Monitor for risk of bleeding, risk of LEVI. Reassess chemistry. Currently withAcute diastolic decompensated CHF as well, diuresis is started. Monitor intake and output. Monitor for risk of electrolyte deficiency, reassess chemistry. Reviewed cardiology note. Transfer to cardiac stepdown. Discussed with showcase maker. Discussed with nursing. With severe elevation of troponin, O2 sat are 90, minimal downtrend to 783. NT proBNP significantly elevated at 9604. Hold off diuresis for now with severe sepsis. Was having chest pain pressure for which she had to take one of her daughters hydrocodone's. Smokes daily. Has psoriasis. Currently without diagnosed medical conditions apart from former, but also does not see a doctor. Continue anticoagulation with heparin drip, monitor for risk of bleeding, monitor PTT, reassess blood counts. Continue aspirin, Plavix, monitor for risk of arrhythmia. Obtain TTE. Cardiology assessment. Consideration of further workup/coronary angiography. Check lipid profile. With hyperglycemia noted on review, check A1c (2) Sepsis: Less likely sepsis, afebrile, leukocytosis has resolved. Lactic acid with improvement. Breast ultrasound has been obtained. Continues empirically on antibiotic for now. Reassess vitals, as still with some sinus tachycardia, 112. Reassess CBC. Check procalcitonin. Unclear source of severe sepsis with tissue hypoperfusion, lactic acid up to 5.2. With sinus tachycardia 113. With leukocytosis 21.4. Source unclear. Reviewed vitals, CBC, D-dimer, CMP, lactic acid, troponin, NT proBNP, procalcitonin, beta-hCG, UA, UDS, coronavirus, close, RSV PCR, chest x- ray, CTA chest, CT abdomen pelvis is requested. Reviewed ER provider note, discussed with ER provider. Sepsis with leukocytosis 21.4, sinus tachycardia 113. With severe sepsis with tissue hypoperfusion, 75.2. She has not had any respiratory symptoms, no suggestion of pneumonia on chest x-ray. No GI symptoms. No neurological symptoms. Does have psoriasis. Does report intermittent carbuncles of breast. Will obtain ultrasound imaging. Reviewed ER provider note, discussed with ER provider. Reviewed CT abdomen pelvis, status post appendectomy. Large left ovarian cyst, 6 x 7.5 x 5.5 cm, but appears not associated with any symptoms. Otherwise without acute process. Additionally possible component of cardiogenic shock with NSTEMI, pending further assessment of cardiac function, possibly new cardiomyopathy. Blood cultures have been collected, she has so far been empirically started on Zosyn. Will continue for now. Monitor for risk of agranulocytosis, Darby- Renny syndrome.C. difficile. Repeat blood counts. Follow-up culture. Has not received fluid resuscitation due to concern for cardiac problems including possible CHF/cardiomyopathy. Qualifiers: Sepsis acute organ dysfunction status: unspecified (3) Lactic acidosis: Reviewed lactic acid, resolved lactic acidosis. Significantly elevated lactic acid, 5.2, possibly secondary to severe sepsis as above. Treated as above. Additional cardiac workup with TTE. Monitor vitals, provide hemodynamic support as needed. May transfer to cardiac stepdown. (4) Dyspnea on exertion: Severe exertional intolerance with minimal exertion even from getting from wheelchair to bed. She is generally not active, with physical deconditioning. Smoking. However, additionally with her elevated NT proBNP 9604 in the setting of normal renal function, elevation of troponin. Additional workup pending as above for NSTEMI and possible cardiomyopathy with CHF. Plan Psoriasis: Has been treating lesions with Vaseline at home by herself. Has not seen special services coordinator. Discussed with her would benefit from follow-up. Smoking: Discussed with her smoking cessation again for 3 and half minutes. She for now is doing okay, declines need for nicotine replacement currently. Obesity: Will benefit from follow-up with primary provider regarding weight loss options. PDMP PDMP Reviewed: Not Reviewed Attestations 2 Medical Necessity Statement*: Continue admission for assessment management of NSTEMI, acute diastolic CHF. and High MDM includes amount and/or complexity of data reviewed/ordered [ previous or external records, resulted lab(s)/test(s), ordered lab(s)/test(s) and other healthcare professional discussion] and described risk of complication, morbidity or mortality of management as documented Diagnoses NSTEMI (non-ST elevated myocardial infarction) I21.4 Sepsis A41.9 Sepsis acute organ dysfunction status: unspecified Lactic acidosis E87.20 Dyspnea on exertion R06.09
[2024-06-11] MEDS: metoprolol succinate ER (24 HR) 25 mg Tablet 12.5 MG PO (17:49)
[2024-06-11] MEDS: atorvastatin 40 mg Tablet 80 MG PO (20:30)
[2024-06-12] VITALS (9 sets, daily range): BP systolic 93–131; BP diastolic 64–81; PULSE 81–112; RESP 16–21; TEMP 36.6–37; O2SAT 92–95
[2024-06-12 03:46] LABS: Basophils # 0.1 10^3/uL (0.0-0.1); Basophils % 0.7 %; Eosinophils # 0.1 10^3/uL (0.0-0.8); Hematocrit 37.3 % (36-47); Lymphocytes # 2.5 10^3/uL (0.8-4.8); Lymphocytes % 22.8 %; Mean Corpuscular HGB Conc 31.4 g/dL (30-55); Mean Corpuscular Hemoglobin 26.6 pg (27-33); Mean Corpuscular Volume 84.8 fl (85-98); Mean Platelet Volume 9.6 fL (7.4-10.4); Monocytes # 0.7 10^3/uL (0.2-0.9); Neutrophils # 7.57 10^3/uL (1.8-7.7); Nucleated Red Blood Cells % 0 %; Platelet Count 266 10^3/cmm (157-399); Red Cell Distribution Width 15.3 % (12.1-15.1); White Blood Count 10.99 10^3/uL (3.29-11.43)
[2024-06-12] MEDS: piperacillin-tazobactam 3.375 GM in sodium chloride 0.9% (plus) 50 ML IV ×2 (04:06→11:32)
[2024-06-12 04:19] LABS: Procalcitonin 0.04 ng/mL (0-0.5)
[2024-06-12 04:21] LABS: Alanine Aminotransferase 11 U/L (0-33); Albumin Level 3.3 g/dL (3.5-5.2); Alkaline Phosphatase 91 U/L (35-105); Aspartate Amino Transferase 21 U/L (0-32); Blood Urea Nitrogen 7 mg/dL (6-20); Calcium 7.9 mg/dL (8.5-10.5); Carbon Dioxide 18 mmol/L (22-29); Chloride 102 mmol/L (98-107); Creatinine Clr Calc Pharmacy 159.8205; Globulin 2.1 g/dL (1.3-4.6); Glomerular Filtration Rate 110.7 mL/min (90-130); Glucose 124 mg/dL (65-115); Osmolality Calculated 279 mOsm/kg (285-295); Sodium 135 mmol/L (136-145); Total Bilirubin 0.7 mg/dL (0.15-1.2); Total Protein 5.4 g/dL (6.6-8.7)
[2024-06-12] MEDS: aspirin 81 mg EC Tablet PO (08:46)
[2024-06-12] MEDS: pantoprazole DR 40 mg Tablet PO (08:46)
[2024-06-12] MEDS: aspirin 325 mg Tablet PO (08:46)
[2024-06-12] MEDS: metoprolol succinate ER (24 HR) 25 mg Tablet 12.5 MG PO (08:46)
[2024-06-12] MEDS: clopidogrel 75 mg Tablet PO (08:46)
--- NOTE | 2024-06-12 12:01 | PC.SOCIAL ---
IMM Updated Updated pt on IMM. No questions voiced. Provided pt a copy. Initialed, dated, & timed a copy & placed in chart.
--- NOTE | 2024-06-12 13:43 | P.DS_ITS ---
Discharge Providers Date of Admission: 06/10/24 13:16 Date of Discharge: June 12, 2024 Attending Provider at Admission: Lazaro Thompson Attending Provider at Discharge: Lazaro Thompson Diagnoses at Discharge Discharge Diagnosis (1) NSTEMI (non-ST elevated myocardial infarction): Status: Acute (2) Sepsis: Status: Acute Qualifiers: Sepsis acute organ dysfunction status: unspecified (3) Lactic acidosis: Status: Acute (4) Dyspnea on exertion: Status: Acute Reason for Visit Reason for Visit: chest pain Hospital Course Hospital Course Pleasant 38-year-old lady with history of smoking, otherwise has not been seeing a physician, presented with malaise, severe exertional intolerance, on presentation with findings consistent with sepsis, with leukocytosis, sinus tachycardia, lactic acidosis 5.2, although without any obvious source, without any respiratory, GI, urinary, integumentary, neurological or other symptoms. Did report having some recurrent boils on her breast, although without any active lesion right now, although felt like recently may have been trying to develop one, was started empirically on antibiotic coverage with Zosyn, additionally with concern for decompensated congestive heart failure with abnormal NT-proBNP, was not given fluid resuscitation, also with noted troponin elevation with progressive rise, at 6 hours troponin as high as 1688. With chest pressure at home, had taken her daughter's hydrocodone to help with symptoms. She was started on aspirin, anticoagulation for NSTEMI, additional assessment sought with echocardiogram, cardiology consultation. She was found to have decreased ejection fraction down to 35%, grade 2 diastolic dysfunction. She is an active smoker, with obesity, sedentary lifestyle being her risk factors for coronary disease. A1c was checked as well and is 7.1. With tachycardia, abnormal D-dimer presentation, was assessed with CTA without finding of PE with incidentally noted left adrenal gland mass containing fat measuring 5.2 x 5 cm, most likely adrenal myelolipoma. 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 She was assessed with coronary angiography with finding of 90% stenosis of LAD for which she underwent treatment with angioplasty and stent placement. She did well after the procedure. She received diuresis in hospital due to acutely decompensated systolic congestive heart failure. EF on echocardiogram found to be 35%, grade 2 diastolic function. She is otherwise feeling better, without any chest pain or pressure. Cardiac medications optimized by cardiology, at discharge she will continue on aspirin, Plavix, and as per discussion with her and is not to discontinue this due to risk of stent occlusion. She started on statin. For diabetes started on metformin, dapagliflozin and is aware to watch out for any adverse symptoms, including GI intolerance with metformin, including is aware of rare but severe complication with dapagliflozin. At discharge she is also continued on fluid restriction, Lasix, and Entresto restarted for her. She otherwise did not show any signs of persistent infection, sepsis, no source for possible sepsis identified. Suspected likely initial presentation was secondary to acutely decreased ejection fraction and hypoperfusion with systemic/tissue hypoperfusion caused by AK/cardiac ischemia. Her W BC count returned to normal on the next day after admission. She remained afebrile. Workup including CT abdomen pelvis, urine studies, breast ultrasound did not reveal any source of infection. Procalcitonin was assessed and not elevated. Antibiotics are not continued. Discharge Data Studies Completed and Pending Completed Studies During Hospitalization Category Date Time Status CT abdomen pelvis wo con [id number] Stat Cat Scan 06/10/24 12:10 Completed CTA chest [CT angio chest PE protcl [id number]] Stat Cat Scan 06/10/24 09:59 Completed XR chest 1V portable [id number] Urgent Exams 06/10/24 08:56 Completed CV. echo complete* [id number] Stat Ultrasound 06/10/24 11:08 Completed US breast BI limited* [id number] Stat Ultrasound 06/10/24 12:46 Completed Pending at discharge Category Date Time Status CHOKE SETTER request for service Routine Exams 06/11/24 08:43 Taken Blood Culture Stat Lab 06/10/24 11:01 Results Complete Blood Count w/Auto AM LABS Lab 06/13/24 04:00 Ordered Comprehensive Metabolic Panel AM LABS Lab 06/13/24 04:00 Ordered Platelet Count Q2D Lab 06/14/24 04:00 Ordered Radiology Impressions Chest X-Ray 06/10/24 08:56 IMPRESSION: No acute cardiopulmonary findings. Chest CTA 06/10/24 09:59 IMPRESSION: 1. No pulmonary embolism. 2. Moderate LEFT ventricular enlargement. Progressed since 02/15/2006. 3. Mild pulmonary edema. 4. LEFT adrenal gland mass containing fat measures 5.2 x 5.0 cm and this is most likely an adrenal myelolipoma. 5. 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 Abdomen/Pelvis CT 06/10/24 12:10 IMPRESSION: 1. Status post appendectomy. 2. No renal obstruction. 3. Large LEFT ovarian cyst measures 6.0 x 7.5 x 5.5 cm. 4. LEFT adrenal gland mass contains fat. Most consistent with adrenal myelolipoma. 5. Small RIGHT adrenal gland adenoma. 6. No free fluid or free air. Breast Ultrasound 06/10/24 12:46 IMPRESSION: No drainable abscess or fluid collection in either breast Laboratory Results WBC 10.99 10^3/uL (3.29-11.43) 06/12/24 02:35 RBC 4.40 10^6/uL (3.85-5.65) 06/12/24 02:35 Hgb 11.70 g/dL (11.27-16.99) 06/12/24 02:35 Hct 37.3 % (36-47) 06/12/24 02:35 MCV 84.8 fl (85-98) L 06/12/24 02:35 MCH 26.6 pg (27-33) L 06/12/24 02:35 MCHC 31.4 g/dL (30-55) D 06/12/24 02:35 RDW 15.3 % (12.1-15.1) H 06/12/24 02:35 Plt Count 266 10^3/cmm (157-399) 06/12/24 02:35 MPV 9.6 fL (7.4-10.4) 06/12/24 02:35 Neut % (Auto) 69.0 % 06/12/24 02:35 Lymph % (Auto) 22.8 % 06/12/24 02:35 [place] % (Auto) 6.0 % 06/12/24 02:35 Eos % (Auto) 1.0 % 06/12/24 02:35 Baso % (Auto) 0.7 % 06/12/24 02:35 Neut # (Auto) 7.57 10^3/uL (1.8-7.7) 06/12/24 02:35 Lymph # (Auto) 2.5 10^3/uL (0.8-4.8) 06/12/24 02:35 [place] # (Auto) 0.7 10^3/uL (0.2-0.9) 06/12/24 02:35 Eos # (Auto) 0.1 10^3/uL (0.0-0.8) 06/12/24 02:35 Baso # (Auto) 0.1 10^3/uL (0.0-0.1) 06/12/24 02:35 Nucleated RBC % (auto) 0 % 06/12/24 02:35 Nucleated RBCs # 0.0 /100WBC 06/12/24 02:35 PT 13.20 SECONDS (12.1-14.9) 06/11/24 01:00 INR 0.93 (0.8-1.2) 06/11/24 01:00 APTT 27.2 SECONDS (23.9-36.7) D 06/11/24 15:39 D-Dimer 0.41 ug/mLFEU (0-0.59) 06/10/24 09:23 Sodium 135 mmol/L (136-145) L 06/12/24 02:35 Potassium 4.0 mmol/L (3.5-5.1) 06/12/24 02:35 Chloride 102 mmol/L (98-107) 06/12/24 02:35 Carbon Dioxide 18 mmol/L (22-29) L 06/12/24 02:35 Anion Gap 19.0 (5-19) 06/12/24 02:35 BUN 7 mg/dL (6-20) 06/12/24 02:35 Creatinine 0.6 mg/dL (0.5-0.9) 06/12/24 02:35 GFR Calculation 110.7 mL/min (90-130) 06/12/24 02:35 Glucose 124 mg/dL (65-115) H 06/12/24 02:35 Estimat Average Glucose 157 06/10/24 09:23 Hemoglobin A1c 7.1 % (4.0-6.0) H 06/10/24 09:23 Calculated Osmolality 279 mOsm/kg (285-295) L 06/12/24 02:35 Lactic Acid 4.4 mmol/L (0.5-2.2) H* 06/10/24 19:22 Lactic Acid (Sepsis) 1.8 mmol/L (0.5-2.2) 06/10/24 21:51 Calcium 7.9 mg/dL (8.5-10.5) L 06/12/24 02:35 Total Bilirubin 0.7 mg/dL (0.15-1.2) 06/12/24 02:35 AST 21 U/L (0-32) 06/12/24 02:35 ALT 11 U/L (0-33) 06/12/24 02:35 Alkaline Phosphatase 91 U/L (35-105) 06/12/24 02:35 Troponin T Baseline 790 ng/L (0-10) H* 06/10/24 09:23 Troponin T 120 Minute 783.0 ng/L (0-10) H 06/10/24 11:01 Delta Troponin T -7.0 ABS# (0-10) L 06/10/24 11:01 Troponin T Hi Sens 6Hr 2478 ng/L (0-10) H 06/10/24 16:58 Troponin T Hi Sens 6Hr Delta 1688 ng/L (0-12) H* 06/10/24 16:58 NT-Pro-B Natriuret Pep 9604 pg/mL (0-125) H 06/10/24 09:23 Total Protein 5.4 g/dL (6.6-8.7) L 06/12/24 02:35 Albumin 3.3 g/dL (3.5-5.2) L 06/12/24 02:35 Globulin 2.1 g/dL (1.3-4.6) 06/12/24 02:35 Triglycerides 197 mg/dL (0-150) H 06/10/24 09:23 Cholesterol 267 mg/dL (0-200) H 06/10/24 09:23 LDL Cholesterol, Calc 199 mg/dL (50-129) H 06/10/24 09:23 Total VLDL Cholesterol 39 mg/dL (0-30) H 06/10/24 09:23 HDL Cholesterol 29 mg/dL (60-100) L 06/10/24 09:23 Cholesterol/HDL Ratio 9.21 mg/dL (0.0-4.40) H 06/10/24 09:23 Procalcitonin 0.04 ng/mL (0-0.5) 06/12/24 02:35 HCG, Qual Negative (Negative) 06/10/24 09:23 Urine Color Yellow (Yellow) 06/10/24 11:10 Urine Appearance Clear (CLEAR) 06/10/24 11:10 Urine pH 5.5 (5-7) 06/10/24 11:10 Ur Specific [place] 1.051 (1.005-1.030) H 06/10/24 11:10 Urine Protein Trace (Negative) A 06/10/24 11:10 Urine Glucose (UA) Negative (Normal) 06/10/24 11:10 Urine Ketones Negative (Negative) 06/10/24 11:10 Urine Blood Non-haemolysed trace (Negative) 06/10/24 11:10 Urine Nitrate Negative (Negative) 06/10/24 11:10 Urine Bilirubin Negative (Negative) 06/10/24 11:10 Urine Urobilinogen 1.0 mg/dL (Negative) 06/10/24 11:10 Ur Leukocyte Esterase Negative (Negative) 06/10/24 11:10 Urine RBC 0-2 /hpf (0-2) 06/10/24 11:10 Urine WBC 0-5 /hpf (0-5) 06/10/24 11:10 Ur Squamous Epith Cells 0-5 /hpf (0-5) 06/10/24 11:10 Amorphous Sediment Not Reportable 06/10/24 11:10 Urine Bacteria Trace /hpf (NONE) 06/10/24 11:10 Hyaline Casts 8.26 /lpf 06/10/24 11:10 Urine Opiates Screen Positive ng/mL (Negative) H 06/10/24 11:10 Ur Barbiturates Screen Negative ng/mL (Negative) 06/10/24 11:10 Ur Phencyclidine Scrn Negative ng/mL (Negative) 06/10/24 11:10 Ur Amphetamines Screen Negative ng/mL (Negative) 06/10/24 11:10 U Benzodiazepines Scrn Negative ng/mL (Negative) 06/10/24 11:10 Urine Cocaine Screen Negative ng/mL (Negative) 06/10/24 11:10 U Marijuana (THC) Screen Negative ng/mL (Negative) 06/10/24 11:10 Coronavirus (PCR) Negative (Negative) 06/10/24 09:45 Influenza A (PCR) Negative (Negative) 06/10/24 09:45 Influenza Type B (PCR) Negative (Negative) 06/10/24 09:45 RSV (PCR) Negative (Negative) 06/10/24 09:45 Vitals Last Vital Signs Temp 97.9 F 06/12/24 11:56 Pulse 81 06/12/24 11:56 Resp 18 06/12/24 11:56 BP 131/77 06/12/24 11:56 Pulse Ox 94 06/12/24 11:56 O2 Del Method Room Air 06/12/24 11:56 Discharge Plan Discharge Patient Disposition: Home Condition: Stable Prescriptions: New aspirin 81 mg Tablet,Delayed Release (Dr/Ec) 81 mg PO DAILY Qty: 90 0RF clopidogrel 75 mg Tablet 75 mg PO DAILY Qty: 90 0RF potassium chloride 10 mEq capsule, extended release 10 meq PO DAILY Qty: 30 1RF atorvastatin 40 mg Tablet 80 mg PO BEDTIME Qty: 90 0RF metoprolol succinate 25 mg Tablet Extended Release 24 Hr 12.5 mg PO DAILY Qty: 90 0RF sacubitril-valsartan [Entresto] 24-26 mg tablet 1 tab PO ONCE Qty: 90 0RF furosemide [Lasix] 20 mg tablet 20 mg PO DAILY PRN (Reason: Edema) Qty: 30 1RF dapagliflozin propanediol 10 mg tablet 10 mg PO DAILY Qty: 90 0RF metformin 500 mg tablet 500 mg PO BID Qty: 180 0RF No Action No Known Home Medications Discharge Orders: Discharge Order (Routine); Ordered 06/12/24 Ordered By: Lazaro Thompson Referrals: Daisy Santos DO [Physician] - 07/30/24 10:30 am Fatou Rubin FNP [Nurse Practitioner] - 06/20/24 2:45 pm () Discharge Diet: Cardiac Discharge Activity: Increase activity as tolerated Patient Instructions: Diabetes and Diet, Metoprolol (By mouth) (Lopressor, Toprol XL), Furosemide (By mouth) (Lasix), Potassium Chloride (By mouth), Aspirin (By mouth), Metformin (By mouth), Atorvastatin (By mouth) (Lipitor, Atorvaliq), Clopidogrel (By mouth), Canagliflozin (By mouth), Sacubitril/Valsartan (By mouth) (Entresto, Entresto Sprinkle), Coronary Angioplasty (DC), Type 2 Diabetes in Adults: New Diagnosis (GEN), Chest Pain Stoplight, Opioid Safety, Post Angiogram Home Care Instructions Activity Restrictions/Additional Instructions: As discussed please do not stop aspirin or Plavix for any reason unless discontinued by physician. As discussed also it may increase your risk of bleeding somewhat, deal with smaller bleeds as we had discussed, otherwise in case bleeding is not stopping or in case of large or concerning bleeding seek medical attention immediately. Avoid injury as possible. As discussed, please stop smoking as further smoking will increase your risk of additional heart attack, stroke, lung disease, cancer and other complications. Maintain 150 minutes or more of moderate exercise per week. Follow-up with your primary provider for reassessment of risk factors of cardiovascular disease. Revisit with your primary doctor regarding weight loss options. As discussed maintain fluid restriction of 1.5 L/day. Avoid lifting more than 3 pounds for 2 days. You may experience bruising at the site of angiogram access, but in case of pulsatile mass, loss of sensation, pale color of the hand, pain, bleeding, or any other concerning symptoms, seek medic al attention immediately. Follow-up with your primary doctor for reassessment of recurrent boils under breasts. No abscess or fluid collection is found currently on ultrasound. Please follow-up with your primary doctor and seek referral to dermatology for management of psoriasis. Remember also that psoriasis increases your risk of cardiovascular disease, heart attack, stroke, making smoking even more dangerous. Please follow up with your primary provider regarding new diagnosis of diabetes. Start metfomin and dapagliflozin with precautions as discussed. Discontinue medication and immediately and seek medical attention in case of redness, pain, swelling of perineum (the area between genitals and buttocks) as discussed due to rare but potential severe adverse effect of perineal necrosis. Seek medical attention in case of any worsening or new concerning symptoms Please follow up with primary provider regarding incidentally noted benign findings with left adrenal gland mass containing fat measures 5.2 x 5.0 cm and this is most likely an adrenal myelolipoma and right adrenal gland lipoma, 1.6 x 1.2 cm. Discharge Attestations Time Spent in Discharge Care*: greater than 30 min Quality Metrics Clinical Quality Measures [ Acute Myocardial Infaction { Clinical Trial Participant: No; Contraindication to aspirin: None; Aspirin prescribed; Contraindication to statin: None; Statin prescribed; Contraindication to PCI: None; PCI performed;}] Coding Level of Care Code 39923 Total time (in minutes) for Discharge: 60 Diagnoses NSTEMI (non-ST elevated myocardial infarction) I21.4 Sepsis A41.9 Sepsis acute organ dysfunction status: unspecified Lactic acidosis E87.20 Dyspnea on exertion R06.09
--- NOTE | 2024-06-12 14:03 | PC.NURSE ---
faxed necessary paperwork to laure with [facility].
--- NOTE | 2024-06-12 14:39 | P.PN_ITS ---
<Statement entered by Stephon Larios MD - 06/13/24 00:42> Patient was evaluated and cared for in conjunction with an advanced practice practitioner. I personally examined the patient and reviewed the chart and all pertinent data including imaging, telemetry, and laboratory results. I discussed the patient in detail with the advanced practice practitioner. Please see their note for complete H&P testing result and agreed upon plan of care for the patient. Denies any complaint overall doing fine from a cardiovascular perspective GENERAL: Patient is alert, awake and oriented x3. HEART: Regular S1 and S2. No murmur, rub or gallop. LUNGS: Clear to auscultate bilaterally. CENTRAL NERVOUS SYSTEM: Grossly nonfocal. EXTREMITIES: Lower extremities with out edema bilaterally. Assessment and plan Non-ST elevation MT Severely depressed left ventricular ejection fraction less than 35% Acute decompensated systolic heart failure now compensated Continues tobacco abuse Status post PCI to mid LAD Continue aspirin statin beta-gail add Entresto Add 20 mg of p.o. daily Lasix LifeVest for ischemic cardiomyopathy with ejection fraction less than 35% as documented by echocardiogram for primary prevention in 90 days From cardiovascular perspective once LifeVest placed patient can be discharged home with heart failure education. Advised to continue dual antiplatelet therapy such as aspirin and Plavix for at least 1 year Subjective 2 Subjective: Patient is doing well. Right radial wrist site clean dry intact no evidence of hematoma. Blood pressure stable at 108/69. Creatinine stable at 0.6. Denies any chest pain or shortness of breath status post stent to the LAD. Vitals/I&O/Wt Last Vital Signs Temp 97.9 F 06/12/24 11:56 Pulse 81 06/12/24 11:56 Resp 18 06/12/24 11:56 BP 131/77 06/12/24 11:56 Pulse Ox 94 06/12/24 11:56 O2 Del Method Room Air 06/12/24 11:56 06/11/24 06/12/24 06/12/24 22:59 06:59 14:59 Intake Total 170 / 710.167 400 / 1110.167 410 / 410 Balance 170 / 710.167 400 / 1110.167 410 / 410 Weight last 48 hrs Weight 274 lb 6.4 oz Weight 274 lb 6.4 oz Weight 276 lb 1.358 oz Physical Exam 2 Narrative: General: No apparent distress, healthy appearing, obese HENMT: normoceophalic Muskuloskeletal: Full ROM Lymphatic: no lymphedema noted Respiratory: Normal respiratory effort, clear to auscultation bilaterally throughout all lung mohr, no use of accessory muscles Cardio: No JVD, regular rate, regular rhythm, S1 S2 normal, no murmurs, peripheral pulses 2+ radial palpated bilaterally GI: Normal to inspection, nondistended Extremities: Full ROM, normal, normal capillary refill, no cyanosis or edema Neuro: Alert and oriented x4, no focal motor deficits Psych: Affect normal, denies suicidal ideation, mental status grossly normal Skin: Appears to have psoriasis on bilateral lower extremities lesions are present without any open wounds, right radial cath site clean dry intact well- approximated small amount of bruising present without signs or symptoms of hematoma full function of her hand good capillary refill with 2+ radial pulse palpated Data 06/12/24 02:35 06/12/24 02:35 Micro: Microbiology 06/10/24 11:01 Blood Culture - Preliminary Blood NEGATIVE TO DATE 06/10/24 09:57 Blood Culture - Preliminary Blood NEGATIVE TO DATE A&P Assessment and plan (1) NSTEMI (non-ST elevated myocardial infarction): (2) Dyspnea on exertion: (3) Lactic acidosis: (4) Sepsis: Qualifiers: Sepsis acute organ dysfunction status: unspecified Plan Patient is status post stent to the LAD. She has a small nondominant chronically occluded left circumflex that will be continuously managed medically. Left ventricular end-diastolic pressure was elevated at 36. From cardiology standpoint she may go home. She should continue aspirin and Plavix for at least 1 year. Continue metoprolol succinate 12.5 mg daily. Entresto will be started once a day due to soft blood pressures. She will be fitted for a LifeVest prior to discharge. Recommend Lasix 20 mg daily. She will be seen in our clinic in 7 to 10 days for follow-up. PDMP PDMP Reviewed: Not Reviewed Attestations 2 Medical Necessity Statement*: Patient may be discharged from a cardiology standpoint once lifevest in place Coding Level of Care Code Acute Code for [facility] Fwd Diagnoses NSTEMI (non-ST elevated myocardial infarction) I21.4 Dyspnea on exertion R06.09 Lactic acidosis E87.20 Sepsis A41.9 Sepsis acute organ dysfunction status: unspecified
[2024-06-12] MEDS: enoxaparin 40 mg/0.4 mL Syringe SUBCUT (17:19)
== END 2024-06-12 19:39 | disposition home or self-care (01) | DRG 321 ==
LOC: ER 13:14 → ER IP 13:17 → ICU 14:52 → CSU 06-11 16:24
PROVIDERS: Internal Medicine; Internal Medicine Cardiovascular Disease; Nurse Practitioner Family; Admitting Provider Internal Medicine; Emergency Provider Physician Assistant; Visit Provider Internal Medicine
PROC: 027034Z Dilation of Coronary Artery, One Artery with Drug-eluting Intraluminal Device, Percutaneous Approach (ICD-10-PCS; principal; 2024-06-11 08:30)
PROC: 027034Z Dilation of Coronary Artery, One Artery with Drug-eluting Intraluminal Device, Percutaneous Approach (ICD-10-PCS; 2024-06-11 08:30)
DX: I21.4 Non-ST elevation (NSTEMI) myocardial infarction (principal); I50.23 Acute on chronic systolic (congestive) heart failure; E87.20 Acidosis, unspecified; Z68.42 Body mass index [BMI] 45.0-49.9, adult; E66.9 Obesity, unspecified; I25.10 Atherosclerotic heart disease of native coronary artery without angina pectoris; E11.9 Type 2 diabetes mellitus without complications; F17.200 Nicotine dependence, unspecified, uncomplicated; L40.9 Psoriasis, unspecified; E78.5 Hyperlipidemia, unspecified
CPT/HCPCS: 36415; 71045; 71275; 74176; 76642; 80053; 80061; 80306; 81001; 83036; 83605; 83880; 84145; 84484; 84703; 85025; 85347; 85378; 85610; 85730; 87040; 87637; 93005; 93306; 93458; 96365; 96366; 96367; 96372; 96374; 96375; 96376; 99152; 99153; 99285; C1725; C1769; C1874; C1887; C1894; C9600; J1644; J1650; J1940; J2250; J2405; J2543; J3010; J3490; J7030; Q0163; Q9967

== ENCOUNTER → 2024-06-20 14:39 | Outpatient (BNVA) | payer MEDICARE, SELFPAY | PROVIDERS: Visit Provider Nurse Practitioner Family | DX: I25.10 Atherosclerotic heart disease of native coronary artery without angina pectoris (principal); I11.0 Hypertensive heart disease with heart failure; I50.20 Unspecified systolic (congestive) heart failure; E78.5 Hyperlipidemia, unspecified; E11.9 Type 2 diabetes mellitus without complications; E66.9 Obesity, unspecified; Z68.42 Body mass index [BMI] 45.0-49.9, adult; Z79.84 Long term (current) use of oral hypoglycemic drugs; Z87.891 Personal history of nicotine dependence | CPT/HCPCS: 99214 ==

== ENCOUNTER → 2024-07-22 08:39 | Outpatient (BNVA) | payer MEDICARE, SELFPAY | PROVIDERS: Visit Provider Nurse Practitioner Family | DX: I50.22 Chronic systolic (congestive) heart failure (principal); I25.2 Old myocardial infarction | CPT/HCPCS: 99214 ==

== ENCOUNTER → 2024-09-10 12:09 | Outpatient (BNVA) | payer MEDICARE, SELFPAY | PROVIDERS: PCP Family Medicine; Visit Provider Family Medicine | DX: Z01.419 Encounter for gynecological examination (general) (routine) without abnormal findings (principal); E11.9 Type 2 diabetes mellitus without complications; Z79.4 Long term (current) use of insulin | CPT/HCPCS: 80053; 80061; 82043; 83036; 85025; 87624 ==

== ENCOUNTER 2024-09-19 08:25 | Outpatient (CLI) | payer MEDICARE, SELFPAY ==
--- NOTE | 2024-09-19 08:28 | USCV_ITS ---
Eva Guzmán Age: 38 Gender: F : 1985 Exam Date: 09/19/2024 08:46 Ordering Phys: Lorena Peace NP Technologist: Easton Washington [place]am [place] [facility] [place]: systolic heart failure BP: 119 / 72 HR: Rhythm: Sinus Technical Quality: MEASUREMENTS (Male / Female) Normal Values 2D ECHO LVOT Diameter 2.1 cm LV Ejection Fraction MOD 4C 45.5 % LV Ejection Fraction MOD 2C 39.5 % LV Ejection Fraction 2C AL 38.6 % LA Diameter 4.0 cm RA Systolic Volume 4C AL 50.6 ml RA Systolic Volume 4C MOD 44.2 ml Aorta at Sinotubular Diameter 2.4 cm M-MODE LA Ao Ratio MM 1.2 AV Cusp Separation MM 2.6 cm FINDINGS Left Ventricle Moderately increased left ventricular cavity size. Severely decreased left ventricular systolic function. Global left ventricular hypokinesis. Left ventricular ejection fraction is estimated at 35 %. Right Ventricle Right Atrium Left Atrium Mitral Valve Aortic Valve Tricuspid Valve Pulmonic Valve Pericardium Aorta IVC CONCLUSIONS Limited echocardiogram Moderately increased left ventricular cavity size. Severely decreased left ventricular systolic function. Global left ventricular hypokinesis. Left ventricular ejection fraction is estimated at 35 %. There is no pericardial effusion. Stephon Larios MD (Electronically Signed) Final Date: 28 Sep 2024 17:09 S
--- NOTE | 2024-09-19 10:00 | MM_ITS ---
WS: [id number] BILATERAL 3D TOMOSYNTHESIS DIGITAL SCREENING MAMMOGRAPHY WITH CAD CLINICAL INFORMATION: screening HISTORY: Screening mammogram. No current complaints. COMPARISON: Baseline TECHNIQUE: Bilateral CC and MLO views. FINDINGS: The breasts are composed of heterogeneous fibroglandular density tissue, which can limit the detection of small underlying mass lesions. Heterogeneous LEFT breast tissue. Dense nodular LEFT subareolar breast tissue. Numerous ovoid nodule subareolar LEFT breast. Recommend further evaluation with LEFT breast ultrasound. RIGHT breast is unremarkable MM/MM [facility] tomosynthesis [id number] IMPRESSION: DENSITY: The breasts are heterogeneously dense, which may obscure small masses. BI-RADS: 0 - Incomplete: Need additional imaging evaluation FOLLOW UP: Need Additional Imaging Recommend subareolar LEFT breast ultrasound
== END 2024-09-19 08:26 | disposition home or self-care (01) ==
LOC: RAD 08:26
PROVIDERS: PCP Family Medicine; Visit Provider Family Medicine
DX: Z12.31 Encounter for screening mammogram for malignant neoplasm of breast (principal); I50.22 Chronic systolic (congestive) heart failure; R92.333 Mammographic heterogeneous density, bilateral breasts; N63.20 Unspecified lump in the left breast, unspecified quadrant; I51.7 Cardiomegaly; R93.1 Abnormal findings on diagnostic imaging of heart and coronary circulation
CPT/HCPCS: 77063; 77067; 93308

== ENCOUNTER → 2024-09-27 11:05 | Outpatient (BNVA) | payer MEDICARE, SELFPAY | PROVIDERS: PCP Family Medicine; Visit Provider Internal Medicine Cardiovascular Disease | DX: I51.89 Other ill-defined heart diseases (principal); Z98.61 Coronary angioplasty status; Z79.01 Long term (current) use of anticoagulants; Z79.82 Long term (current) use of aspirin; Z87.891 Personal history of nicotine dependence; I25.2 Old myocardial infarction | CPT/HCPCS: 99214 ==

== ENCOUNTER 2024-10-10 07:05 | Outpatient (CLI) | payer MEDICARE, SELFPAY ==
--- NOTE | 2024-10-10 07:11 | US_ITS ---
WS: [id number] ULTRASOUND BREAST LEFT TECHNIQUE: Ultrasound left breast focused area of concern. CLINICAL INFORMATION: abnormal mammo. Patient with history of carbuncle/abscess. COMPARISON: 06/10/2024 ultrasound FINDINGS: Ultrasound subareolar LEFT breast. Ductal ectasia subareolar LEFT breast with areas of intraductal debris. No evidence of solid focal mass to target for biopsy. No other suspicious findings. Recommend correlation with LEFT nipple discharge or clinical symptoms of infection/mastitis. In the absence of clinical symptoms, findings are benign in appearance and recommend return to annual screening mammography US/US breast LT limited* [id number] IMPRESSION: BI-RADS 2 benign Recommend return to annual screening mammography.
== END 2024-10-10 07:06 | disposition home or self-care (01) ==
PROVIDERS: PCP Family Medicine; Visit Provider Family Medicine
DX: R92.8 Other abnormal and inconclusive findings on diagnostic imaging of breast (principal); N61.1 Abscess of the breast and nipple; N60.42 Mammary duct ectasia of left breast
CPT/HCPCS: 76642; 87070; 87075; 87205

== ENCOUNTER → 2024-12-17 10:53 | Outpatient (BNVA) | payer MEDICARE, SELFPAY | PROVIDERS: PCP Family Medicine; Visit Provider Family Medicine | DX: E11.9 Type 2 diabetes mellitus without complications (principal); Z79.4 Long term (current) use of insulin | CPT/HCPCS: 80053; 83036 ==

== ENCOUNTER → 2025-03-18 08:31 | Outpatient (BNVA) | payer MEDICARE, SELFPAY | PROVIDERS: PCP Family Medicine; Visit Provider Family Medicine | DX: E11.9 Type 2 diabetes mellitus without complications (principal); Z79.4 Long term (current) use of insulin | CPT/HCPCS: 80053; 83036 ==